=== PATIENT | female | born 1945 | race Caucasian/White ===

== ENCOUNTER 2018-07-01 22:52 | Inpatient (IN) | payer MEDICARE ==
[~2018-07-01] VITALS: Ht 152.4 cm; Wt 89.1 kg
[~2018-07-01 22:52] MED LIST: AUGMENTIN875TAB PO; B-12; BACTROBAN2 % TOP; CALCIUM; CIPROFLOXACN500 MG PO; DIFLUCAN150 MG PO; DOXYCYCL HYC100 MG PO; FLONASE NASAL50 MCG; HYDROCODONE BIT; HYDROCORTISO2.51 EX; LACTAID FAS9000 UNIT PO; LASIX 20 MG TAB20 MG PO; LOSARTAN POT100 MG PO; MELATONIN3 MG PO; METFORMIN500 M2 PO; METOPROLOL SUCC50 MG OR; MUCINEX600 MG PO; NORCO1 TA1 PO; SPIRONOLACT100 MG PO; ULTRAM50 M1 PO; [UNRECOGNIZED DRUG - OTHER] VA
[2018-07-01 23:35] LABS: HEMATOCRIT 35.3 % (37.0-47.0); HEMOGLOBIN 11.3 g/dl (12.0-16.0); IMMATURE GRANULOCYTES 0.4 % (0.0-5.0); MEAN CELL VOLUME 88.7 fL CALC (80.0-100.0); MEAN CORPUSCULAR HGB 28.4 pG CALC (26.0-32.0); NEUT# 4.52 thou/uL (2.00-7.15); RED BLOOD COUNT 3.98 mill/uL (4.20-5.60); RED CELL DISTRI WIDTH 18.4 % (11.5-15.5)
[2018-07-01 23:44] LABS: ALBUMIN 4.1 g/dL (3.2-5.0); ALKALINE PHOSPHATASE 81 u/l (38-126); ANION GAP 17 (6-22 (CALC)); BILIRUBIN, TOTAL 0.2 mg/dL (0.0-1.4); BUN 22 mg/dL (8-23); BUN/CREATININE RATIO 29 (12-20 (CALC)); CARBON DIOXIDE 24 mmol/l (22-30); CHLORIDE 107 mmol/l (95-108); CREATININE 0.8 mg/dL (0.5-1.0); GFR > 60 ML/MIN (>=60 (CALC)); GFR FOR AFR.AMER. > 60 ML/MIN (>=60 (CALC)); POTASSIUM 4.1 mmol/l (3.5-5.1); SGOT/AST 30 u/l (9-36); SGPT/ALT 35 u/l (11-66); SODIUM 144 mmol/l (137-146); TOTAL PROTEIN 7.4 g/dL (6.3-8.2)
[2018-07-01 23:56] LABS: MYOGLOBIN 120 ng/mL (0 - 62)
[2018-07-02] VITALS (17 sets, daily range): BP systolic 96–155; BP diastolic 56–106
[2018-07-02 00:39] LABS: URINE BILIRUBIN - DIPSTICK NEGATIVE (NEGATIVE); URINE BLOOD DIPSTICK NEGATIVE (NEGATIVE); URINE COLOR YELLOW; URINE GLUCOSE - DIPSTICK NEGATIVE (NEGATIVE); URINE KETONE NEGATIVE (NEGATIVE); URINE LEUK ESTERASE NEGATIVE (NEGATIVE); URINE NITRITE - DIPSTICK NEGATIVE (Negative); URINE PROTEIN - DIPSTICK NEGATIVE (NEG-TRACE); URINE SPECIFIC GRAVITY 1.015; URINE UROBILINOGEN - DIPSTICK 0.2 E.U./dL (0.2)
[2018-07-02 00:47] LABS: URINE CLARITY CLEAR
[2018-07-02 02:44] LABS: INTERNATIONAL NORMALIZED RATIO 0.9 RATIO (0.7-1.3); PROTHROMBIN TIME 10.4 SECONDS (9.0-12.5)
[2018-07-03] VITALS: BP 113/83
[2018-07-03 04:55] LABS: HEMOGLOBIN 11.9 g/dl (12.0-16.0); IMMATURE GRANULOCYTES 0.4 % (0.0-5.0); MEAN CELL VOLUME 87.5 fL CALC (80.0-100.0); MEAN CORPUSCULAR HGB 28.1 pG CALC (26.0-32.0); MEAN CORPUSCULAR HGB CONC 32.2 g/L CALC (32.0-36.0); NEUT# 7.44 thou/uL (2.00-7.15); RED BLOOD COUNT 4.23 mill/uL (4.20-5.60); RED CELL DISTRI WIDTH 18.1 % (11.5-15.5)
[2018-07-03 05:08] LABS: ALBUMIN 3.7 g/dL (3.2-5.0); ALKALINE PHOSPHATASE 86 u/l (38-126); ANION GAP 13 (6-22 (CALC)); BILIRUBIN, TOTAL 0.5 mg/dL (0.0-1.4); BUN 14 mg/dL (8-23); BUN/CREATININE RATIO 26 (12-20 (CALC)); CARBON DIOXIDE 29 mmol/l (22-30); CHLORIDE 104 mmol/l (95-108); CREATININE 0.6 mg/dL (0.5-1.0); GFR > 60 ML/MIN (>=60 (CALC)); GFR FOR AFR.AMER. > 60 ML/MIN (>=60 (CALC)); MAGNESIUM 1.4 mg/dL (1.6-2.3); POTASSIUM 4.3 mmol/l (3.5-5.1); SGOT/AST 28 u/l (9-36); SGPT/ALT 34 u/l (11-66); SODIUM 142 mmol/l (137-146); TOTAL PROTEIN 6.6 g/dL (6.3-8.2)
[2018-07-03 06:00] VITALS: BP 111/49
[2018-07-03 07:00] VITALS: BP 140/93
[2018-07-03 10:00] VITALS: BP 111/66
[2018-07-03 16:00] VITALS: BP 115/70
[2018-07-03 20:00] VITALS: BP 87/56
[2018-07-04] VITALS: BP 107/56
[2018-07-04 04:00] VITALS: BP 110/66
[2018-07-04 06:01] LABS: HEMATOCRIT 38.4 % (37.0-47.0); HEMOGLOBIN 12.3 g/dl (12.0-16.0); IMMATURE GRANULOCYTES 0.5 % (0.0-5.0); MEAN CELL VOLUME 88.9 fL CALC (80.0-100.0); MEAN CORPUSCULAR HGB 28.5 pG CALC (26.0-32.0); NEUT# 3.69 thou/uL (2.00-7.15); RED BLOOD COUNT 4.32 mill/uL (4.20-5.60)
[2018-07-04 06:19] LABS: ALBUMIN 3.4 g/dL (3.2-5.0); ALKALINE PHOSPHATASE 76 u/l (38-126); ANION GAP 15 (6-22 (CALC)); BILIRUBIN, TOTAL 0.5 mg/dL (0.0-1.4); BUN 18 mg/dL (8-23); BUN/CREATININE RATIO 33 (12-20 (CALC)); CARBON DIOXIDE 25 mmol/l (22-30); CHLORIDE 107 mmol/l (95-108); CREATININE 0.5 mg/dL (0.5-1.0); GFR > 60 ML/MIN (>=60 (CALC)); GFR FOR AFR.AMER. > 60 ML/MIN (>=60 (CALC)); MAGNESIUM 1.5 mg/dL (1.6-2.3); POTASSIUM 4.6 mmol/l (3.5-5.1); SGOT/AST 36 u/l (9-36); SGPT/ALT 29 u/l (11-66); SODIUM 141 mmol/l (137-146); TOTAL PROTEIN 6.3 g/dL (6.3-8.2)
[2018-07-04 07:30] VITALS: BP 110/73
[2018-07-04] MEDS ORDERED: XARELTO10 MG PO (12:32)
[2018-07-04] MEDS ORDERED: METO50TA52 PO (12:32)
[2018-07-04] MEDS ORDERED: PANTOPRAZOLE SO40 M1 PO (12:33)
[2018-07-04 13:00] VITALS: BP 100/57
== END 2018-07-04 15:40 | DRG 309 ==
LOC: ED 22:52 → ED-I 23:18 → ED 07-02 01:00 → MS2 07-02 01:01 → ICU 07-02 01:01
PROVIDERS: Emergency Medicine; ADMIT Internal Medicine Nephrology; ATTEND Internal Medicine Nephrology
DX: I48.91 Unspecified atrial fibrillation (principal); G45.9 Transient cerebral ischemic attack, unspecified; I10 Essential (primary) hypertension; E11.40 Type 2 diabetes mellitus with diabetic neuropathy, unspecified; E78.5 Hyperlipidemia, unspecified; J44.9 Chronic obstructive pulmonary disease, unspecified; R60.0 Localized edema; D63.8 Anemia in other chronic diseases classified elsewhere; E66.9 Obesity, unspecified; S61.512A Laceration without foreign body of left wrist, initial encounter; W18.30XA Fall on same level, unspecified, initial encounter; Y92.000 Kitchen of unspecified non-institutional (private) residence as the place of occurrence of the external cause; Z68.38 Body mass index [BMI] 38.0-38.9, adult; Z79.84 Long term (current) use of oral hypoglycemic drugs; Z87.11 Personal history of peptic ulcer disease

== ENCOUNTER 2018-08-22 15:11 | Emergency (ER) | payer MEDICARE ==
[~2018-08-22] VITALS: Ht 147.3 cm; Wt 90.0 kg
[~2018-08-22 15:11] MED LIST changes: +ACETAMINOPHEN325 MG PO; +ALEVE220 M1 PO; +ANTI-DIARRHE2 M1 PO; +AZELASTINE0.1 %; +B-12500 MC1 PO; +CORRECTOL100 MG PO; +DUONEB IN; +GAS RELIEF EXT125 MG PO; +LACTASE PO; +LOVASTATIN10 M1 PO; +LOVASTATIN10 MG PO; +MELATONIN5 M3 PO; +METO50TA52 PO; -METOPROLOL SUCC50 MG OR; +METOPROLOL SUCC50 MG PO; +MULTIVITAMIN PO; +PANTOPRAZOLE SO40 M1 PO; +PROBIOTI3 PO; +PROTONIX40 M2 PO; +RANITIDINE150 M1 PO; +SINGULAIR10 MG PO; +TYLENOL 500MG TAB PO; +VENTOLIN HFA IN; +VITAMIN D31000 UNI1 PO; +VITAMIN E PO; +XARELTO10 MG PO; +magnesium carbonate PO
[2018-08-22 16:28] LABS: IMMATURE GRANULOCYTES 0.8 % (0.0-5.0); MEAN CELL VOLUME 91.3 fL CALC (80.0-100.0); MEAN CORPUSCULAR HGB 28.5 pG CALC (26.0-32.0); MEAN CORPUSCULAR HGB CONC 31.2 g/L CALC (32.0-36.0); NEUT# 6.43 thou/uL (2.00-7.15); RED BLOOD COUNT 2.42 mill/uL (4.20-5.60); RED CELL DISTRI WIDTH 18.5 % (11.5-15.5)
[2018-08-22 16:30] LABS: HEMOGLOBIN 6.9 g/dl (12.0-16.0)
[2018-08-22 16:31] LABS: HEMATOCRIT 22.1 % (37.0-47.0)
[2018-08-22 16:46] LABS: ALBUMIN 3.6 g/dL (3.2-5.0); ALKALINE PHOSPHATASE 69 u/l (38-126); ANION GAP 14 (6-22 (CALC)); BILIRUBIN, TOTAL 0.3 mg/dL (0.0-1.4); BUN 22 mg/dL (8-23); BUN/CREATININE RATIO 32 (12-20 (CALC)); CARBON DIOXIDE 24 mmol/l (22-30); CHLORIDE 102 mmol/l (95-108); CREATININE 0.7 mg/dL (0.5-1.0); GFR > 60 ML/MIN (>=60 (CALC)); GFR FOR AFR.AMER. > 60 ML/MIN (>=60 (CALC)); POTASSIUM 4.7 mmol/l (3.5-5.1); SGOT/AST 24 u/l (9-36); SODIUM 135 mmol/l (137-146); TOTAL PROTEIN 6.3 g/dL (6.3-8.2)
[2018-08-22 18:57] VITALS: BP 142/70
[2018-08-26] MEDS ORDERED: XARELTO20 MG PO (12:06)
[2018-08-26] MEDS ORDERED: GNP MUCUS RELI400 MG PO (12:09)
== END 2018-08-22 18:57 | disposition short-term general hospital (02) ==
LOC: ED 15:11
PROVIDERS: Emergency Medicine
DX: K92.2 Gastrointestinal hemorrhage, unspecified (principal); D50.0 Iron deficiency anemia secondary to blood loss (chronic); I10 Essential (primary) hypertension; E11.9 Type 2 diabetes mellitus without complications; I48.91 Unspecified atrial fibrillation; K27.9 Peptic ulcer, site unspecified, unspecified as acute or chronic, without hemorrhage or perforation; T48.6X6A Underdosing of antiasthmatics, initial encounter; R06.02 Shortness of breath
CPT/HCPCS: S0164

== ENCOUNTER 2018-09-16 13:44 | Observation (INO) | payer MEDICARE ==
[~2018-09-16] VITALS: Ht 147.3 cm; Wt 87.0 kg
[~2018-09-16 13:44] MED LIST changes: +GNP MUCUS RELI400 MG PO; +XARELTO20 MG PO
[2018-09-16] MEDS ORDERED: METOPROL TAR25 MG PO (14:01)
[2018-09-16] MEDS ORDERED: LASIX 20 MG TAB20 MG PO (14:01)
[2018-09-16 14:08] LABS: IMMATURE GRANULOCYTES 0.3 % (0.0-5.0); MEAN CELL VOLUME 91.9 fL CALC (80.0-100.0); MEAN CORPUSCULAR HGB 28.3 pG CALC (26.0-32.0); MEAN CORPUSCULAR HGB CONC 30.9 g/L CALC (32.0-36.0); NEUT# 4.24 thou/uL (2.00-7.15); RED BLOOD COUNT 3.81 mill/uL (4.20-5.60); RED CELL DISTRI WIDTH 18.1 % (11.5-15.5)
[2018-09-16 14:09] LABS: HEMOGLOBIN 10.8 g/dl (12.0-16.0)
[2018-09-16 14:20] LABS: ANION GAP 14 (6-22 (CALC)); BUN 33 mg/dL (8-23); BUN/CREATININE RATIO 41 (12-20 (CALC)); CARBON DIOXIDE 29 mmol/l (22-30); CHLORIDE 99 mmol/l (95-108); CREATININE 0.8 mg/dL (0.5-1.0); GFR > 60 ML/MIN (>=60 (CALC)); GFR FOR AFR.AMER. > 60 ML/MIN (>=60 (CALC)); POTASSIUM 4.7 mmol/l (3.5-5.1); SODIUM 138 mmol/l (137-146)
[2018-09-16 17:43] VITALS: BP 117/65
[2018-09-16 20:07] VITALS: BP 129/79
[2018-09-17 00:20] VITALS: BP 126/81
[2018-09-17 04:56] VITALS: BP 121/80
[2018-09-17 06:12] LABS: HEMATOCRIT 35.7 % (37.0-47.0); IMMATURE GRANULOCYTES 0.3 % (0.0-5.0); MEAN CELL VOLUME 92.5 fL CALC (80.0-100.0); MEAN CORPUSCULAR HGB 28.5 pG CALC (26.0-32.0); MEAN CORPUSCULAR HGB CONC 30.8 g/L CALC (32.0-36.0); NEUT# 7.93 thou/uL (2.00-7.15); RED BLOOD COUNT 3.86 mill/uL (4.20-5.60); RED CELL DISTRI WIDTH 18.3 % (11.5-15.5)
[2018-09-17 06:34] LABS: ALBUMIN 3.9 g/dL (3.2-5.0); ALKALINE PHOSPHATASE 84 u/l (38-126); ANION GAP 15 (6-22 (CALC)); BILIRUBIN, TOTAL 0.4 mg/dL (0.0-1.4); BUN 31 mg/dL (8-23); BUN/CREATININE RATIO 45 (12-20 (CALC)); CARBON DIOXIDE 28 mmol/l (22-30); CHLORIDE 100 mmol/l (95-108); CREATININE 0.7 mg/dL (0.5-1.0); GFR > 60 ML/MIN (>=60 (CALC)); GFR FOR AFR.AMER. > 60 ML/MIN (>=60 (CALC)); POTASSIUM 4.2 mmol/l (3.5-5.1); SGOT/AST 25 u/l (9-36); SODIUM 139 mmol/l (137-146); TOTAL PROTEIN 6.8 g/dL (6.3-8.2)
[2018-09-17 06:44] LABS: MAGNESIUM 1.9 mg/dL (1.6-2.3)
[2018-09-17 08:00] VITALS: BP 99/58
[2018-09-17 11:55] VITALS: BP 100/73
[2018-09-17 16:18] VITALS: BP 112/81
[2018-09-17 20:00] VITALS: BP 127/85
[2018-09-18 04:35] VITALS: BP 102/41
[2018-09-18 07:05] LABS: HEMATOCRIT 33.3 % (37.0-47.0); HEMOGLOBIN 10.3 g/dl (12.0-16.0); IMMATURE GRANULOCYTES 0.4 % (0.0-5.0); MEAN CELL VOLUME 91.7 fL CALC (80.0-100.0); MEAN CORPUSCULAR HGB 28.4 pG CALC (26.0-32.0); MEAN CORPUSCULAR HGB CONC 30.9 g/L CALC (32.0-36.0); NEUT# 4.95 thou/uL (2.00-7.15); RED BLOOD COUNT 3.63 mill/uL (4.20-5.60)
[2018-09-18 07:19] LABS: ALBUMIN 3.5 g/dL (3.2-5.0); ALKALINE PHOSPHATASE 79 u/l (38-126); ANION GAP 12 (6-22 (CALC)); BILIRUBIN, TOTAL 0.4 mg/dL (0.0-1.4); BUN 21 mg/dL (8-23); BUN/CREATININE RATIO 35 (12-20 (CALC)); CARBON DIOXIDE 30 mmol/l (22-30); CHLORIDE 101 mmol/l (95-108); CREATININE 0.6 mg/dL (0.5-1.0); GFR > 60 ML/MIN (>=60 (CALC)); GFR FOR AFR.AMER. > 60 ML/MIN (>=60 (CALC)); MAGNESIUM 1.9 mg/dL (1.6-2.3); POTASSIUM 4.5 mmol/l (3.5-5.1); SGOT/AST 24 u/l (9-36); SODIUM 139 mmol/l (137-146); TOTAL PROTEIN 6.3 g/dL (6.3-8.2)
[2018-09-18 08:44] VITALS: BP 105/68; BP 99/68
[2018-09-18 10:25] LABS: C. DIFFICILE TOXIN A&B NEGATIVE (NEGATIVE)
[2018-09-18 12:08] VITALS: BP 126/72
[2018-09-18 15:57] VITALS: BP 119/54
[2018-09-18 19:50] VITALS: BP 98/56
[2018-09-19 00:30] VITALS: BP 125/74
[2018-09-19 05:32] VITALS: BP 110/69
[2018-09-19 06:01] LABS: HEMATOCRIT 36.1 % (37.0-47.0); HEMOGLOBIN 11.2 g/dl (12.0-16.0); IMMATURE GRANULOCYTES 0.4 % (0.0-5.0); MEAN CELL VOLUME 91.9 fL CALC (80.0-100.0); MEAN CORPUSCULAR HGB 28.5 pG CALC (26.0-32.0); NEUT# 5.17 thou/uL (2.00-7.15); RED BLOOD COUNT 3.93 mill/uL (4.20-5.60); RED CELL DISTRI WIDTH 17.4 % (11.5-15.5)
[2018-09-19 06:07] LABS: ALBUMIN 3.5 g/dL (3.2-5.0); ALKALINE PHOSPHATASE 82 u/l (38-126); ANION GAP 13 (6-22 (CALC)); BILIRUBIN, TOTAL 0.4 mg/dL (0.0-1.4); BUN 25 mg/dL (8-23); BUN/CREATININE RATIO 36 (12-20 (CALC)); CARBON DIOXIDE 29 mmol/l (22-30); CHLORIDE 101 mmol/l (95-108); CREATININE 0.7 mg/dL (0.5-1.0); GFR > 60 ML/MIN (>=60 (CALC)); GFR FOR AFR.AMER. > 60 ML/MIN (>=60 (CALC)); POTASSIUM 4.5 mmol/l (3.5-5.1); SGOT/AST 22 u/l (9-36); SODIUM 138 mmol/l (137-146); TOTAL PROTEIN 6.4 g/dL (6.3-8.2)
[2018-09-19 08:30] VITALS: BP 114/72
[2018-09-19 11:20] VITALS: BP 119/84
[2018-09-19] MEDS ORDERED: CIPROFLOXACN500 MG PO (14:52)
[2018-09-19] MEDS ORDERED: ROBITUSSIN AC10 ML PO (15:45)
== END 2018-09-19 17:23 | disposition home or self-care (01) ==
LOC: ED 13:44 → ED-I 15:19 → ED 15:30 → MS2 15:31
PROVIDERS: Family Medicine; ADMIT Internal Medicine Nephrology; ATTEND Internal Medicine Nephrology
DX: I48.91 Unspecified atrial fibrillation (principal); I10 Essential (primary) hypertension; R00.1 Bradycardia, unspecified; E11.9 Type 2 diabetes mellitus without complications; K27.9 Peptic ulcer, site unspecified, unspecified as acute or chronic, without hemorrhage or perforation; J44.9 Chronic obstructive pulmonary disease, unspecified; E66.9 Obesity, unspecified; Z68.41 Body mass index [BMI] 40.0-44.9, adult; G47.33 Obstructive sleep apnea (adult) (pediatric); E78.5 Hyperlipidemia, unspecified; K21.9 Gastro-esophageal reflux disease without esophagitis; E55.9 Vitamin D deficiency, unspecified; R19.7 Diarrhea, unspecified; R60.0 Localized edema

== ENCOUNTER 2018-10-29 22:24 | Inpatient (IN) | payer MEDICARE ==
[~2018-10-29] VITALS: Ht 274.3 cm; Wt 84.4 kg
[~2018-10-29 22:24] MED LIST changes: +METOPROL TAR25 MG PO; +ROBITUSSIN AC10 ML PO
--- NOTE | 2018-10-29 22:32 | NUR ---
PT ARRIVES TO ROOM # 10 VIA EMS STRETCHER.
--- NOTE | 2018-10-29 22:47 | NUR ---
PT IN NAD. LEFT LEG SHORTENED. LEFT LEG SWOLLEN ALL THE WAY TO THE FOOT. ABRASION TO LEFT HAND.
--- NOTE | 2018-10-29 22:47 | NUR ---
A/O X3. BECKWITH. GRASP EQUAL RESP EASY. SOME COUGH. DIM BS IN LOWER BASES. OTHERWISE CLEAR. ABD SOFT/NON-TENDER. BS+ X 4. PT IS RED/SLIGHTLY ESCORIATED IN BREAST CREASE AND GROIN/LOWER ABD/VIKTOR AREA. STATES SHE IS SUPPOSE TO BE PUTTING CREAM ON IT...BUT DIDN'T TODAY.
--- NOTE | 2018-10-29 22:48 | NUR ---
XRAY AT BEDSIDE
[2018-10-29 22:59] LABS: HEMATOCRIT 36.4 % (37.0-47.0); HEMOGLOBIN 11.3 g/dl (12.0-16.0); IMMATURE GRANULOCYTES 0.5 % (0.0-5.0); MEAN CELL VOLUME 89.7 fL CALC (80.0-100.0); MEAN CORPUSCULAR HGB 27.8 pG CALC (26.0-32.0); NEUT# 3.12 thou/uL (2.00-7.15); RED BLOOD COUNT 4.06 mill/uL (4.20-5.60); RED CELL DISTRI WIDTH 17.3 % (11.5-15.5)
[2018-10-29 23:17] LABS: ALBUMIN 3.4 g/dL (3.2-5.0); ALKALINE PHOSPHATASE 86 u/l (38-126); ANION GAP 13 (6-22 (CALC)); BILIRUBIN, TOTAL 0.3 mg/dL (0.0-1.4); BUN 22 mg/dL (8-23); BUN/CREATININE RATIO 35 (12-20 (CALC)); CARBON DIOXIDE 27 mmol/l (22-30); CHLORIDE 106 mmol/l (95-108); CREATININE 0.6 mg/dL (0.5-1.0); GFR > 60 ML/MIN (>=60 (CALC)); GFR FOR AFR.AMER. > 60 ML/MIN (>=60 (CALC)); POTASSIUM 3.8 mmol/l (3.5-5.1); SGOT/AST 37 u/l (9-36); SODIUM 142 mmol/l (137-146); TOTAL PROTEIN 6.1 g/dL (6.3-8.2)
[2018-10-29 23:29] LABS: MYOGLOBIN 116 ng/mL (0 - 62)
--- NOTE | 2018-10-29 23:43 | NUR ---
ATTEMPTED TO CATH...UNABLE. PT NOW ON BEDPAN
[2018-10-30] VITALS (14 sets, daily range): BP systolic 90–141; BP diastolic 53–86
--- NOTE | 2018-10-30 00:30 | NUR ---
INT RESTARTED AFTER SEVERAL ATTEMPTS. PT STILL UNABLE TO VOID.
--- NOTE | 2018-10-30 00:40 | NUR ---
TO FLOOR VIA STRETCHER. PT ON PORTABLE MONITOR
--- NOTE | 2018-10-30 00:40 | NUR ---
UNABLE TO DO MED REC PT DOES NOT HAVE LIST WITH HER. STATES SHE WILL HAVE HER DAUGHTER BRING IT UP IN THE AM.
--- NOTE | 2018-10-30 02:00 | NUR ---
PATIENT ADMITTED FROM ER VIA STRETCHER WITH ER STAFF IN ATTENDANCE. PATIENT IS MAX TRANSFER FROM STRETCHER TO BED. PATIENT IS AWAKE ALERT AND ORIENTEDX3. PATIENT ADMITTED AFTER HAVING FALL AT HOME AND BROUGHT TO THE ER BY EMS. TELE MONITOR IN PLACE-A-FIB ON MONITOR. IV SITE TO RIGHT UPPER CHEST INTACT AND IS HEALTHY WITH GOOD BLOOD RETURN. ORIENTED PATIENT TO ROOM AND SURROUNDINGS. INSTRUCTED PATIENT ON USE OF NURSE CALL LIGHT SYSTEM, TV REMOTE. AND PHONE. PATIENT PROVIDED WITH SNACK-TOLERATED WELL. SAFETY PRECAUTIONS REINFORCED. CALL LIGHT IN REACH. WILL CONT TO MONITOR.
[2018-10-30 05:58] LABS: URINE BILIRUBIN - DIPSTICK NEGATIVE (NEGATIVE); URINE BLOOD DIPSTICK LARGE (NEGATIVE); URINE COLOR YELLOW; URINE GLUCOSE - DIPSTICK NEGATIVE (NEGATIVE); URINE KETONE NEGATIVE (NEGATIVE); URINE PROTEIN - DIPSTICK TRACE mg/dL (NEG-TRACE); URINE UROBILINOGEN - DIPSTICK 0.2 E.U./dL (0.2)
--- NOTE | 2018-10-30 06:00 | NUR ---
PATIENT VOIDED ON BEDPAN AND URINE SPEC OBTAINED AND SENT TO LAB. CALL LIGHT IN REACH. WILL CONT TO MONITOR.
[2018-10-30 06:03] LABS: URINE LEUK ESTERASE SMALL (NEGATIVE); URINE NITRITE - DIPSTICK POSITIVE (Negative)
[2018-10-30 06:06] LABS: URINE BACTERIA MODERATE hpf; URINE RBC 0-2 RBC/hpf (0-5); URINE SQUAMOUS EPITHELIAL CELL FEW EPI/hpf (0-FEW)
--- NOTE | 2018-10-30 07:00 | NUR ---
REPORT RECEIVED FROM ANGELA PIERSON;PT RESTING IN SEMI FOWLERS POSITION, NON-PRODUCTIVE COUGH NOTED AND FRESH WATER PROVIDED;INTRODUCED SELF TO PT AND POC DISCUSSED;RESPIRATIONS EVEN AND UNLABORED ON RA;PT DENIES ANY CURRENT PAIN OR NEEDS;TELE MONITORING IN PLACE;PT ENCOURAGED TO CALL FOR ASSISTANCE IF NEEDED;FALL PRECAUTIONS IN PLACE WITH BED IN THE LOWEST POSITION AND CALL LIGHT IN REACH;WILL CONTINUE TO MONITOR
--- NOTE | 2018-10-30 08:20 | NUR ---
PT RESTING IN SEMI FOWERS POSITION;VS OBTAINED AND ASSESSMENT COMPLETED;PT DENIES ANY CURRENT PAIN OR DISCOMFORTS,PAIN SCALE AND REPORTING EDUCATED;RESPIRATIONS EVEN AND UNLABORED ON RA,SHALLOW;NON-PRODUCTIVE COUGH NOTED, HOT TEA PROVIDED PER PT REQUEST;ABDOMEN DISTENDED/SOFT ON PALPATION AND ACTIVE IN ALL 4 QUADRANTS;WEAK PEDAL PULSES WITH TRACE EDEMA NOTED TO BLE;#22G TO CHA FLUSHED AND PATENT,SITE APPEARS HEALTHY;TELE MONITORING IN PLACE;ACCUCHECK WAS 89 THIS MORNING;PT DENIES ANY ADDITIONAL NEEDS AT THIS TIME AND IS ENCOURAGED TO CALL FOR ASSISTANCE IF NEEDED;FALL PRECAUTIONS IN PLACE WITH BED IN THE LOWEST POSITION AND CALL LIGHT IN REACH;WILL CONTINUE TO MONITOR
[2018-10-30 10:56] LABS: ALBUMIN 3.6 g/dL (3.2-5.0); ALKALINE PHOSPHATASE 82 u/l (38-126); ANION GAP 15 (6-22 (CALC)); BILIRUBIN, TOTAL 0.3 mg/dL (0.0-1.4); BUN 18 mg/dL (8-23); BUN/CREATININE RATIO 33 (12-20 (CALC)); CARBON DIOXIDE 23 mmol/l (22-30); CHLORIDE 105 mmol/l (95-108); CREATININE 0.6 mg/dL (0.5-1.0); GFR > 60 ML/MIN (>=60 (CALC)); GFR FOR AFR.AMER. > 60 ML/MIN (>=60 (CALC)); MAGNESIUM 1.7 mg/dL (1.6-2.3); POTASSIUM 3.7 mmol/l (3.5-5.1); SGOT/AST 38 u/l (9-36); SODIUM 139 mmol/l (137-146); TOTAL PROTEIN 6.7 g/dL (6.3-8.2)
--- NOTE | 2018-10-30 11:50 | NUR ---
PT OOB RESTING IN RECLINER;PT AMBULATED WITH 2 PERSON ASSIST TO RESTROOM AND VOIDED 600CC OF CLOUDY/YELLOW URINE;PT RE-POSITIONED BACK INTO RECLINER;RESPIRATIONS SHALLOW ON O2 @ 2L VIA NC;PT DENIES ANY CURRENT PAIN OR DISCOMFORTS;TELE MONITORING IN PLACE;ACCUCHECK 120 AT THIS TIME;PT DENIES ANY ADDITIONAL NEEDS AND IS ENCOURAGED TO CALL FOR ASSISTANCE IF NEEDED;FALL PRECAUTIONS IN PLACE WITH CALL LIGHT IN REACH;WILL CONTINUE TO MONITOR
--- NOTE | 2018-10-30 12:00 | NUR ---
AT BEDSIDE DISCUSSING POC.
--- NOTE | 2018-10-30 12:54 | NUR ---
PINEDA CATHETER PLACED AT THIS TIME PER ORDERS BY FERN AND GUILLERMINA BOO;600CC OF CLOUDY/YELLOW URINE OBTAINED INITIALLY.PT TOLERATED WELL.LEG STRAP APPLIED.
--- NOTE | 2018-10-30 13:07 | NUR ---
NEB TX STOPPED EARLY DUE TO MAKING HER COUGH TOO MUCH.
--- NOTE | 2018-10-30 13:09 | NUR ---
PT TRANSFERRED TO [facility] VIA WHEELCHAIR ACCOMPANIED BY VOLUNTEER IN STABLE CONDITION.
--- NOTE | 2018-10-30 13:30 | NUR ---
PT TRANSFERRED BACK TO MED/SURG IN STABLE CONDITION VIA WHEELCHAIR ACCOMPANIED BY VOLUNTEER.PT RE-POSITIONED INTO BED.PT AWARE OF PENDING TRANSFER TO ICU AND VERBALIZES UNDERSTANDING;WILL CONTINUE TO MONITOR
--- NOTE | 2018-10-30 14:00 | NUR ---
REPORT GIVEN TO ANGELA ROSS;PT TO BE TRANSFERRED TO ICU BED 6.
--- NOTE | 2018-10-30 14:13 | NUR ---
PT TRANSFERRED TO ICU BED 6 VIA WHEELCHAIR IN STABLE CONDITION.CARE RELINQUISHED TO ANGELA ROSS.
--- NOTE | 2018-10-30 14:17 | NUR ---
female pt received to ICU bed 6 via wc accompanied by Andreina Bob RN in stable condition; assessment completed at this time; pt alert and oriented; denies pain; no n/v noted at present; resp even and unlabored; lungs clear with crackles noted to left base; skin color wnl; o2 per nc; hr irreg; wk pedal pulses/doppler used; 2+ edema noted to ble; afib on monitor; abd soft with bs present; no bm noted per movie writer; tariq to gravity draining clear/ pale yellow urine; cath strap intact; #22 in robert flushed and patent; no redness or edema noted at site; bumex gtt initiated at 0.5mg/hr=5cc/hr; redness noted to right abd/ groin fold and under right breast; plan of care/ meds explained; pt very talkative; call light within reach; will continue to monitor
--- NOTE | 2018-10-30 16:10 | NUR ---
awake in bed; very talkative; no apparent distress noted; pt offers no complaints; afib on monitor; iv patent; bumex gtt cont at 0.5mg/hr; tariq to gravity; call light within reach; will continue to monitor
--- NOTE | 2018-10-30 17:03 | NUR ---
NEB TX NOT GIVEN DUE TO INCREASED HR
--- NOTE | 2018-10-30 17:53 | NUR ---
awake eating dinner; offers no complaints; iv patent; no redness or edema noted at site; afib on monitor; tariq to gravity; call light within reach
--- NOTE | 2018-10-30 19:29 | NUR ---
PT SITTING UP ON BSC. PT IS ALERT AND ORIENTED X3. PT HAS SLURRED SPEECH WHICH IS PATIENT NORM. SHIFT ASSESSMENT COMPLETED AT THIS TIME. PLAN OF CARE REVIEWED WITH PT. CALL LIGHT IN REACH. WILL CONTINUE TO MONITOR.
--- NOTE | 2018-10-30 21:20 | NUR ---
PT SLEEPING AT THIS TIME. NO S/O DISTRESS NOTED.
--- NOTE | 2018-10-30 21:26 | NUR ---
PT IS IN HIGH FOWLERS POSITION IN BED WATCHING TV W/LIGHTS ON. PINEDA CATHETER IS PATENT W/VERY LIGHT YELLOW CLEAR OUTPUT. PT IS VERY TALKATIVE, DENIES ANY DISTRESS/DISCOMFORT OR NEEDS AT THIS TIME. CALL LIGHT IS IN PT HAND AND SHE HAS BEEN ENCOURAGED TO CALL IF ANY NEEDS ARISE.
--- NOTE | 2018-10-30 23:19 | NUR ---
PT MEDICATED FOR COUGH REQUESTED. NO OTHER S/O DISTRESS. CATHETER PATENT DRAINING CLEAR URINE. IV FLUIDS @0.5ML/HR, SITE APPEARS HEALTHY. CALL LIGHT AT SIDE.
--- NOTE | 2018-10-30 23:50 | NUR ---
V/S ASSESSED, PT TEMP 100.3. PT HAS TWO BLANKETS ON AND ROOM IS TURNED TO HEAT AND IS VERY WARM. ROOM COOLED AND ONE BLANKET REMOVED. PT PROVIDED COOL WASH CLOTH TO HELP HER COOL DOWN, HER FACE APPEARS FLUSHED. WILL RECHECK TEMP AND PT WITH FOLLOW-UP.
[2018-10-31] VITALS (14 sets, daily range): BP systolic 95–133; BP diastolic 57–89
--- NOTE | 2018-10-31 00:30 | NUR ---
PT TEMP 97.7 AND PT APPEARS NON-FLUSHED. WILL CONTINUE TO MONITOR.
--- NOTE | 2018-10-31 01:12 | NUR ---
PT IS SLEEPING AT THIS TIME, IV FLUIDS ARE RUNNING ORDERS PROVIDE. LIGHTS AND TV ARE OFF. NO S/O DISTRESS NOTED. CALL LIGHT AT SIDE.
--- NOTE | 2018-10-31 01:30 | NUR ---
PT APPEARS TO BE SLEEPING AT THIS TIME. NO S/O DISTRESS NOTED. CALL LIGHT AT SIDE.
--- NOTE | 2018-10-31 03:40 | NUR ---
PT V/S ASSESSED, PT ASSISTED GETTING SOCKS BACK ON AND TUCKED BACK INTO BED. NO S/O DISTRESS NOTED, PT WAS SLEEPING SOUNDLY, BUT AWOKE TO MY VOICE. CALL LIGHT LEFT AT PT SIDE.
--- NOTE | 2018-10-31 05:42 | NUR ---
PT APPEARS TO BE SLEEPING AT THIS TIME., NO S/O DISTRESS NOTED. CALL LIGHT NEXT TO HAND.
--- NOTE | 2018-10-31 07:30 | NUR ---
pt awake in bed; offers no complaints; no apparent distress noted; very talkative; assessment completed at this time; pt alert and oriented; complaints of headache; no n/v noted; resp even and unlabored; lungs clear with crackles in bases; skin color wnl; o2 per nc; hr irreg; strong pulses; edema noted to ble; afib on monitor; abd soft with bs present; no bm noted per story writer; tariq to gravity draining clear light yellow urine; cath pino in place; #22 to robert patent with bumex gtt infusing at 0.5mg/hr=0.5cc/hr; no redness or edema noted at site; plan of care/ am meds explained; call light within reach; will continue to monitor
--- NOTE | 2018-10-31 10:15 | NUR ---
awake in bed; offers no complaints; bp reassessed; lopressor administered; tariq to gravity; afib on monitor; call light within reach; will continue to monitor
--- NOTE | 2018-10-31 11:00 | NUR ---
iv noted leaking at insertion site; #22 removed from right shoulder/upper arm with cath tip intact; #22 started lw x2 attempts; flushed and patent; abt resumed; will continue to monitor
--- NOTE | 2018-10-31 12:00 | NUR ---
awake in bed eating lunch; no apparent distress noted; pt offers no complaints; iv intact; afib on monitor; tariq to gravity; call light within reach; will continue to monitor
--- NOTE | 2018-10-31 12:06 | NUR ---
business case analyst Agusto Paula RN notified of pt request for assistance with making out a living will and financial assistance with hospital and home finance;
[2018-10-31 12:24] LABS: HEMATOCRIT 36.5 % (37.0-47.0); HEMOGLOBIN 11.9 g/dl (12.0-16.0); IMMATURE GRANULOCYTES 0.9 % (0.0-5.0); MEAN CELL VOLUME 86.5 fL CALC (80.0-100.0); MEAN CORPUSCULAR HGB 28.2 pG CALC (26.0-32.0); MEAN CORPUSCULAR HGB CONC 32.6 g/L CALC (32.0-36.0); NEUT# 10.3 thou/uL (2.00-7.15); RED BLOOD COUNT 4.22 mill/uL (4.20-5.60)
[2018-10-31 12:40] LABS: BUN 26 mg/dL (8-23); BUN/CREATININE RATIO 38 (12-20 (CALC)); CREATININE 0.7 mg/dL (0.5-1.0); GFR > 60 ML/MIN (>=60 (CALC)); GFR FOR AFR.AMER. > 60 ML/MIN (>=60 (CALC)); MAGNESIUM 1.4 mg/dL (1.6-2.3); SODIUM 138 mmol/l (137-146)
[2018-10-31 12:56] LABS: ANION GAP 17 (6-22 (CALC)); CARBON DIOXIDE 35 mmol/l (22-30); CHLORIDE 90 mmol/l (95-108)
--- NOTE | 2018-10-31 13:49 | NUR ---
WEIGHT OBTAINED VIA STANDING SCALE PER MD REQUEST;
--- NOTE | 2018-10-31 14:30 | NUR ---
awake in chair; offers no complaint; no distress noted; afib on monitor; call light within reach; will continue to monitor
--- NOTE | 2018-10-31 16:20 | NUR ---
awake in bed conversing on cell phone; no apparent distress noted; pt offers no complaints; iv patent; bumeg gtt infusing as per protocol; tariq to gravity; afib on monitor; call light within reach; will continue to monitor
--- NOTE | 2018-10-31 17:58 | NUR ---
awake in chair; offers no complaints; iv patent; bumex gtt cont; tariq to gravity; call light within reach
--- NOTE | 2018-10-31 21:00 | NUR ---
awake. very talkative. denies c/o. monitoring engineer shows a fib. #22 lt wrist bumex gtt infusing @ 5cchr. fluids restrictions cont. tariq cath in place. urine clear yellow. fall precautions cont.
--- NOTE | 2018-10-31 22:00 | NUR ---
watching tv. no c/o voiced. bus driver/monitor shows a fib.
[2018-11-01] VITALS (11 sets, daily range): BP systolic 110–141; BP diastolic 68–95
--- NOTE | 2018-11-01 00:01 | NUR ---
eyes closed. no distress. tariq draining well.
--- NOTE | 2018-11-01 02:00 | NUR ---
eyes closed. no apparent distress. wardrobe supervisor shows a fib.
--- NOTE | 2018-11-01 05:00 | NUR ---
lab here. blood drawn.
[2018-11-01 05:51] LABS: HEMATOCRIT 39.8 % (37.0-47.0); IMMATURE GRANULOCYTES 0.7 % (0.0-5.0); MEAN CELL VOLUME 85.6 fL CALC (80.0-100.0); MEAN CORPUSCULAR HGB CONC 32.7 g/L CALC (32.0-36.0); NEUT# 11.74 thou/uL (2.00-7.15); RED BLOOD COUNT 4.65 mill/uL (4.20-5.60); RED CELL DISTRI WIDTH 16.6 % (11.5-15.5)
[2018-11-01 06:10] LABS: ALBUMIN 4.1 g/dL (3.2-5.0); ALKALINE PHOSPHATASE 95 u/l (38-126); AMYLASE 55 u/l (30-110); BILIRUBIN, TOTAL 0.4 mg/dL (0.0-1.4); BUN 38 mg/dL (8-23); BUN/CREATININE RATIO 44 (12-20 (CALC)); CHLORIDE 84 mmol/l (95-108); CREATININE 0.9 mg/dL (0.5-1.0); GFR > 60 ML/MIN (>=60 (CALC)); GFR FOR AFR.AMER. > 60 ML/MIN (>=60 (CALC)); LIPASE 133 u/l (23-300); MAGNESIUM 1.6 mg/dL (1.6-2.3); POTASSIUM 4.2 mmol/l (3.5-5.1); SGOT/AST 40 u/l (9-36); SODIUM 139 mmol/l (137-146); TOTAL PROTEIN 7.2 g/dL (6.3-8.2)
--- NOTE | 2018-11-01 06:15 | NUR ---
stood to weigh. martina well.
[2018-11-01 06:30] LABS: ANION GAP 18 (6-22 (CALC))
[2018-11-01 06:31] LABS: CARBON DIOXIDE 41 mmol/l (22-30)
--- NOTE | 2018-11-01 07:55 | NUR ---
ASSESSMENT IS COMPLETED: IV SITE IS FREE FROM REDNESS OR EDEMA. HR IS IRREGULAR, PULSES ARE STRONG , BREATH SOUNDS ARE CLEAR AND DIMINISHED. PINEDA INTACT DRAINING YELLOW URINE. CONTINUE TO OBSERVE AND MONITOR.
--- NOTE | 2018-11-01 10:00 | NUR ---
PT IS SITTING IN THE CHAIR AND THEN BACK TO BED. IV SITE IS FREE FROM REDNESS OR EDEMA.
--- NOTE | 2018-11-01 12:15 | NUR ---
PT IS RELAXING IN BED WITH NO DISTRESS NOTED. IV SITE IS FREE FROM REDNESS OR EDEMA. CONTINUE TO OSBERVE AND MONITOR.
--- NOTE | 2018-11-01 14:00 | NUR ---
PT IS RELAXING IN BED WITH NO DISTRESS NOTED. IV SITE IS FREE FROM REDNESS OR EDEMA.
--- NOTE | 2018-11-01 16:00 | NUR ---
PT IS SITTING IN THE CHAIR. NO DISTRESS NOTES. IV SITE IS FREE FROM REDNESS OR EDEMA. CONTINUE TO OBSERVE AND MONITOR.
--- NOTE | 2018-11-01 18:03 | NUR ---
PT IS SITTING UP IN THE CHAIR. WITH NO DISTRESS NOTED. IV SITE IS FREE FROM REDNESS OR EDEMA
--- NOTE | 2018-11-01 19:00 | NUR ---
sitting in bedside chair. denies c/o. residential monitor shows a fib pvcs hr 131. tariq cath in place. urine clear yellow. assisted to bed. martina well. fall precautions cont.
--- NOTE | 2018-11-01 22:00 | NUR ---
eyes closed. no distress. cardiac tech shows a fib pvcs.
[2018-11-02] VITALS (12 sets, daily range): BP systolic 109–151; BP diastolic 66–84
--- NOTE | 2018-11-02 00:01 | NUR ---
resting quietly. no distress. o2 cont.
--- NOTE | 2018-11-02 02:00 | NUR ---
eyes closed. no distress. rn cardiac cath shows a fib pvcs.
--- NOTE | 2018-11-02 04:30 | NUR ---
lab here. blood drawn.
--- NOTE | 2018-11-02 05:00 | NUR ---
stood to weigh. martina well.
[2018-11-02 05:18] LABS: ALKALINE PHOSPHATASE 91 u/l (38-126); ANION GAP 20 (6-22 (CALC)); BILIRUBIN, TOTAL 0.4 mg/dL (0.0-1.4); BUN 60 mg/dL (8-23); BUN/CREATININE RATIO 67 (12-20 (CALC)); CARBON DIOXIDE 37 mmol/l (22-30); CHLORIDE 88 mmol/l (95-108); CREATININE 0.9 mg/dL (0.5-1.0); GFR > 60 ML/MIN (>=60 (CALC)); GFR FOR AFR.AMER. > 60 ML/MIN (>=60 (CALC)); MAGNESIUM 1.9 mg/dL (1.6-2.3); POTASSIUM 4.3 mmol/l (3.5-5.1); SGOT/AST 70 u/l (9-36); SODIUM 140 mmol/l (137-146); TOTAL PROTEIN 7.1 g/dL (6.3-8.2)
[2018-11-02 05:32] LABS: HEMATOCRIT 41.5 % (37.0-47.0); HEMOGLOBIN 13.3 g/dl (12.0-16.0); IMMATURE GRANULOCYTES 0.8 % (0.0-5.0); MEAN CELL VOLUME 87.2 fL CALC (80.0-100.0); MEAN CORPUSCULAR HGB 27.9 pG CALC (26.0-32.0); NEUT# 10.48 thou/uL (2.00-7.15); RED BLOOD COUNT 4.76 mill/uL (4.20-5.60); RED CELL DISTRI WIDTH 16.9 % (11.5-15.5)
--- NOTE | 2018-11-02 07:20 | NUR ---
pt up to chair; no apparent distress noted; pt offers no complaints; assessment completed at this time; pt alert and oriented; very talkative; denies pain/n/v; resp even and unlabored; lungs clear; skin color wnl; o2 per nc at 2L; hr irreg; wk left pedal pulse; no edema noted; afib on monitor; abd soft with bs present; no bm noted per health technical writer; tariq to gravity draining clear yellow urine; cath pino intact; #22 in lw saline locked; no redness or edema noted at site; plan of care/ am meds explained; call light within reach; will continue to monitor
--- NOTE | 2018-11-02 08:02 | NUR ---
up to chair; offers no complaints; iv intact; afib 130s on monitor; will continue to monitor
--- NOTE | 2018-11-02 09:14 | NUR ---
iv noted partially dislodged; now leaking when flushed; catheter removed with tip intact
--- NOTE | 2018-11-02 10:08 | NUR ---
awake in bed; no apparent distress noted; iv patent; abt infusing without complication; no redness or edema noted at site; afib on monitor; tariq to gravity; call light within reach; will continue to monitor
--- NOTE | 2018-11-02 12:05 | NUR ---
awake; up to chair eating lunch; no apparent distress noted; iv intact; afib on monitor; o2 per nc; tariq to gravity; call light within reach; will continue to monitor
--- NOTE | 2018-11-02 13:35 | NUR ---
Dr Ware present at bedside to assess pt and discuss plan of care
--- NOTE | 2018-11-02 14:10 | NUR ---
awake conversing on cell phone; no apparent distress noted; iv intact; afib on monitor; tariq to gravity; call light within reach; will continue to monitor
--- NOTE | 2018-11-02 14:13 | NUR ---
home health Alondra notified per contract writer to cancellation in discharged for today
--- NOTE | 2018-11-02 16:00 | NUR ---
resting in bed with eyes closed; no apparent distress noted; easily arousable; offers no complaints; iv intact; o2 per nc; afib on monitor; call light within reach; will continue to monitor
--- NOTE | 2018-11-02 18:00 | NUR ---
awake in chair eating dinner; offers no complaints; no apparent distress noted; afib on monitor; iv intact; call light within reach
--- NOTE | 2018-11-02 19:00 | NUR ---
sitting in bedside chair. denies distress. o2 cont per nc. bus monitor shows a fib pvcs. #22 rfa saline lock. fluids restriction cont. assisted to bsc then to bed. no void or bm.
--- NOTE | 2018-11-02 22:00 | NUR ---
reading a magazine. denies c/o. strike off machine operator shows a fib pvcs.
--- NOTE | 2018-11-02 23:00 | NUR ---
voided incont after coughing. up to bsc. voided again then back to bed. martina well.
[2018-11-03] VITALS (10 sets, daily range): BP systolic 107–138; BP diastolic 15–99
--- NOTE | 2018-11-03 00:01 | NUR ---
eyes closed. no distress. o2 cont.
--- NOTE | 2018-11-03 01:45 | NUR ---
robitussin 10cc given for cough.
--- NOTE | 2018-11-03 04:00 | NUR ---
eyes closed. no distress. director of cardiac rehabilitation shows a fib pvcs.
--- NOTE | 2018-11-03 05:00 | NUR ---
lab here. blood drawn.
[2018-11-03 05:33] LABS: HEMATOCRIT 41.6 % (37.0-47.0); HEMOGLOBIN 13.1 g/dl (12.0-16.0); IMMATURE GRANULOCYTES 0.9 % (0.0-5.0); MEAN CELL VOLUME 88.3 fL CALC (80.0-100.0); MEAN CORPUSCULAR HGB 27.8 pG CALC (26.0-32.0); MEAN CORPUSCULAR HGB CONC 31.5 g/L CALC (32.0-36.0); NEUT# 10.9 thou/uL (2.00-7.15); RED BLOOD COUNT 4.71 mill/uL (4.20-5.60); RED CELL DISTRI WIDTH 16.6 % (11.5-15.5)
[2018-11-03 05:47] LABS: ANION GAP 19 (6-22 (CALC)); BUN 67 mg/dL (8-23); BUN/CREATININE RATIO 84 (12-20 (CALC)); CARBON DIOXIDE 35 mmol/l (22-30); CHLORIDE 92 mmol/l (95-108); CREATININE 0.8 mg/dL (0.5-1.0); GFR > 60 ML/MIN (>=60 (CALC)); GFR FOR AFR.AMER. > 60 ML/MIN (>=60 (CALC)); SODIUM 142 mmol/l (137-146)
--- NOTE | 2018-11-03 07:00 | NUR ---
pt resting in bed with eyes closed; easily arousable; no apparent distress noted; pt offers no complaints; assessment completed at this time; pt alert and oriented; denies pain; no n/v noted; resp even and unlabored; lungs clear/ diminished bases; skin color wnl; premix concrete batcher cough; o2 per nc at 2L; hr irreg; strong pulses; trace edema noted to ble; afib on monitor; abd soft with bs present; no bm noted per junior technical writer; no urine to inspect at this time; pt admits to stress incont; bsc; #22 to rfa saline locked; no redness or edema noted at site; plan of care/ am meds explained; call light within reach; will continue to monitor
--- NOTE | 2018-11-03 07:58 | NUR ---
awake up to chair for breakfast; offers no complaints; iv intact; afib/pvc on monitor; pt assisted to bsc; voiding with difficulty/straining; 200cc cl yellow urine noted; call light within reach; will continue to monitor
--- NOTE | 2018-11-03 10:09 | NUR ---
awake in bed; no apparent distress noted; pt offers no complaints; iv patent; abt infusing without complication; afib on monitor; call light within reach; will continue to monitor
[2018-11-03] MEDS ORDERED: LOPRESSOR 550 MG/TAB PO (11:53)
[2018-11-03] MEDS ORDERED: CARDIZEM CD120 M1 PO (11:53)
[2018-11-03] MEDS ORDERED: BUMETANIDE1 MG PO (11:54)
--- NOTE | 2018-11-03 11:57 | NUR ---
Dr Ware present at bedside to assess pt and discuss plan of care
--- NOTE | 2018-11-03 12:20 | NUR ---
awake up to bsc; offers no complaints; pt admits to having a bm; iv intact; afib on monitor; ra; call light within reach; will continue to monitor
--- NOTE | 2018-11-03 13:18 | NUR ---
parts data writer called pharm Eugenio; pharm informer per this parts data writer, pt received cardizem this am approx 0830; permission received to administer cardizem CD;
--- NOTE | 2018-11-03 13:45 | NUR ---
this abstract writer called Ayesha Pace (daughter) in regards to discharged schedule for today; daughter inquiring about home health; informed home health has been set up and they will see pt tomorrow; daughter requesting for an appointment with social service and/or case maker; daughter states "I have a lot of concerns about pt going home because she lives alone and has fell multiple times"; daughter then inquires how can a pt be discharged from ICU; abstract writer will speak with MD in regards to planned discharged
--- NOTE | 2018-11-03 13:51 | NUR ---
Dr Ware called per advertising writer; informed per this advertising writer about daughter's concerns; discharge to be held
--- NOTE | 2018-11-03 14:12 | NUR ---
awake in bed conversing on cell phone; no apparent distress noted; pt offers no complaints; iv intact; afib on monitor; call light within reach; will continue to monitor
--- NOTE | 2018-11-03 16:00 | NUR ---
awake in bed; no apparent distress noted; pt offers no complaints; iv intact; afib on monitor; o2 per nc; call light within reach; will continue to monitor
--- NOTE | 2018-11-03 18:21 | NUR ---
awake in chair; offers no complaints; no apparent distress noted; afib monitor; call light within reach
--- NOTE | 2018-11-03 19:00 | NUR ---
awakened easily. remains in bedside chair. athletic monitor shows a fib pvcs. #22 rfa saline lock. fluids restrictions cont. voids per bsc occas stress incont. fall precautions cont.
--- NOTE | 2018-11-03 21:00 | NUR ---
awakens easily. denies distress. hs meds given. voided per bsc then to bed.
[2018-11-04] VITALS (7 sets, daily range): BP systolic 111–144; BP diastolic 67–87
--- NOTE | 2018-11-04 00:01 | NUR ---
hall monitor shows a fib pvcs. hr 92.
--- NOTE | 2018-11-04 02:00 | NUR ---
up to bsc. martina well.
--- NOTE | 2018-11-04 04:00 | NUR ---
awake overnight monitor shows a fib pvcs hr 96.
--- NOTE | 2018-11-04 05:30 | NUR ---
up to bsc, stood to weigh then to bed. martina well.
--- NOTE | 2018-11-04 06:50 | NUR ---
REPORT RECVD FROM ROBBIE RODRIGUEZ AT START OF SHIFT.
--- NOTE | 2018-11-04 07:35 | NUR ---
PT ASSISTED UP TO BSC FOR URINATION & BM. ACCUCHECK & ASSESSMENT COMPLETE. PTS SPEECH IS GARBLED, PT STATES THAT IS NORMAL FOR HER. BREATHING EVEN/UNLABORED, LUNG SOUNDS CLEAR UPPER/MID, DIMINISHED LOWER.
--- NOTE | 2018-11-04 08:00 | NUR ---
PT SITTING UP IN CHAIR, EATING BREAKFAST. REQUESTING MORE FLUIDS. EDUCATED PT ON FLUID RESTRICTIONS. PT FREQUENTLY ON CALLBELL. DONIS CANTU NOTIFIED THAT PT IS STILL IN ICU.
--- NOTE | 2018-11-04 11:34 | NUR ---
P.T. @BEDSIDE FOR EVAL.
--- NOTE | 2018-11-04 12:10 | NUR ---
SPOKE WITH PATIENT ABOUT MEDICATIONS. ANSWERED ALL QUESTIONS AND COUNSELED ON EXPECTED SIDE EFFECTS OF NEW MEDICATIONS ADDED DURING HER STAY. GAVE PATIENT A COPY OF UPDATED MED LIST TO BRING WITH HER TO APPOINTMENTS.
--- NOTE | 2018-11-04 12:25 | NUR ---
CASE MANAGEMENT WORKING ON PLACING PT IN A REHAB.
--- NOTE | 2018-11-04 14:53 | NUR ---
PT SITTING ON SIDE OF BED, GIVING HERSELF A BATH. LINENS & GOWN CHANGED.
--- NOTE | 2018-11-04 16:32 | NUR ---
CALLED FOR BED ASSINGMENT TO TRANSFER MS OVERFLOW PT TO [facility]. PT WILL GO TO NORMAN Lock RN WCB FOR REPORT.
--- NOTE | 2018-11-04 17:12 | NUR ---
REPORT GIVEN TO NORMAN FOR TRANSFER. PT TRANSPORTED BY WITH ALL HER BELONGINGS.
--- NOTE | 2018-11-04 17:55 | NUR ---
PT ARRIVED ON FLOOR VIA W/C AMBULATE WITH UNSTEADY GAIT TO DIGITAL SCALE; WT AND VITALS OBTAINED; RESP EVEN AND UNLABORED ON R/A; TELE ATTACHED TO PT; CALL GOSS AND SAFETY PRECAUTION REINFORCE.
--- NOTE | 2018-11-04 20:05 | NUR ---
PT. SITTING UP IN BED WITH NO DISTRESS NOTED; DENIES NEEDS/PAIN; ASSESSMENT COMPLETED; IV SITE PATENT AND SL TO LEFT WRIST; UPDATED ON POC; ENCOURAGED TO CALL FOR ANY NEEDS; CALL LIGHT IS IN REACH; WILL CONTINUE TO MONITOR.
--- NOTE | 2018-11-04 21:20 | NUR ---
PT. SITTING UP IN BED EATING A SNACK; NO DISTRESS NOTED;SCHED MEDS GIVEN; DENIES NEEDS; CALL LIGHT IS IN REACH; RE-EDUCATED HEBREW TEACHER LIGHT USE; ENCOURAGED TO CALL FOR ANY NEEDS; CALL LIGHT IS IN REACH.
[2018-11-05] VITALS (7 sets, daily range): BP systolic 126–149; BP diastolic 72–89
--- NOTE | 2018-11-05 | NUR ---
PT. RESTING IN BED WITH NO DISTRESS NOTED; DENIES NEEDS; CALL LIGHT IS IN REACH;
--- NOTE | 2018-11-05 03:43 | NUR ---
PT. RESTING IN BED WITH EYES CLOSED; NO DISTRESS NOTED; RESP EVEN AND UNLABORED; CALL LIGHT IS IN REACH; WILL CONTINUE TO MONITOR.
--- NOTE | 2018-11-05 05:41 | NUR ---
PT. RESTING IN BED WITH EYES CLOSED; NO DISTRESS NOTED; RESP EVEN AND UNLABORED; CALL LIGHT IS IN REACH.
[2018-11-05 05:57] LABS: HEMATOCRIT 41.3 % (37.0-47.0); HEMOGLOBIN 13.1 g/dl (12.0-16.0); IMMATURE GRANULOCYTES 0.8 % (0.0-5.0); MEAN CELL VOLUME 87.9 fL CALC (80.0-100.0); MEAN CORPUSCULAR HGB 27.9 pG CALC (26.0-32.0); MEAN CORPUSCULAR HGB CONC 31.7 g/L CALC (32.0-36.0); NEUT# 11.8 thou/uL (2.00-7.15); RED BLOOD COUNT 4.7 mill/uL (4.20-5.60); RED CELL DISTRI WIDTH 16.3 % (11.5-15.5)
[2018-11-05 06:30] LABS: ALBUMIN 3.4 g/dL (3.2-5.0); ALKALINE PHOSPHATASE 88 u/l (38-126); ANION GAP 19 (6-22 (CALC)); BILIRUBIN, TOTAL 0.4 mg/dL (0.0-1.4); BUN 72 mg/dL (8-23); BUN/CREATININE RATIO 90 (12-20 (CALC)); CARBON DIOXIDE 31 mmol/l (22-30); CHLORIDE 90 mmol/l (95-108); CREATININE 0.8 mg/dL (0.5-1.0); GFR > 60 ML/MIN (>=60 (CALC)); GFR FOR AFR.AMER. > 60 ML/MIN (>=60 (CALC)); POTASSIUM 4.5 mmol/l (3.5-5.1); SGOT/AST 71 u/l (9-36); SODIUM 135 mmol/l (137-146); TOTAL PROTEIN 6.1 g/dL (6.3-8.2)
[2018-11-05 06:31] LABS: MAGNESIUM 2.4 mg/dL (1.6-2.3)
--- NOTE | 2018-11-05 07:05 | NUR ---
PT REPORT RECIEVED FROM ANGELA MASTERSON. PT SITTING IN RECLINER. NO S/S OF DISTRESS. CALL LIGHT IN REACH
--- NOTE | 2018-11-05 07:42 | NUR ---
PT A/O X3. SPEECH IS SLIGHTLY GARBLED. RESP EVEN AND UNLABORED. LUNG SOUNDS CLEAR. TELE IN PLACE. BOWEL SOUNDS ACTIVE X4. STRONG RADIAL AND PEDAL PULSES. #22 LW SL. FLUSHED AND PATENT, SITE HEALTHY. PT HS SLIGHT REDNESS UNDERNEATH RT BREAST, RT ABDOMINAL FOLD, AND BOTH GROINS. TRACE OF EDEMA NOTED TO LLE. ENCOURAGED ELEVATION WHEN OOB. SKIN INTACT. PT DENIES ANY PAIN OR NEEDS. POC DISCUSSED. SAFETY PRECAUTIONS IN PLACE. CALL LIGHT IN REACH. WILL CONTINUE TO MONITOR.
--- NOTE | 2018-11-05 09:11 | NUR ---
Pt. found resting this AM in recliner, she does not voice any concerns and is in agreement to participate in gait training and therapeutic exercises, gait belt applied prior to doing so. Sit to stand done with CGA x1 and verbal cues for UE push off from arm rests. Pt. ambulated 2 x 30 feet using 4WW with CGA x 1 and with verbal cues for completing turns, one sitting rest period given. In sitting the pt. performed seated marching, seated alternating knee extensions and AROM shoulder flexion to shoulder height 2 x 10 repetitions each exercise. Visual demonstartions and continual verbal encouragement required during exercise. Pt. left resting comfortably in recliner with LE's elevated, call light reviewed and left within reach. Bedside table left within reach, pt. left without questions or concerns.
--- NOTE | 2018-11-05 12:11 | NUR ---
PT SIITING IN RECLINER EATING AND WATCHING TELEVISION. NO C/O PAIN OR NEEDS. CALL LIGHT IN REACH. WILL CONTINUE TO MONITOR.
--- NOTE | 2018-11-05 16:27 | NUR ---
PT SITTING IN RECLINER, NO C/O OF PAIN OR NEEDS. CALL LIGHT IN REACH. WILL CONTINUE TO MONITOR.
--- NOTE | 2018-11-05 20:37 | NUR ---
PT. SITTING UP IN RECLINER WITH NO DISTRESS NOTED; DENIES NEEDS/PAIN. SCHED MEDS GIVEN; ASSESSMENT COMPLETED; IV SITE PATENT AND SL; FLUSHED AT THIS TIME; PO FLUIDS OFFERED; MOM GIVEN FOR CONSTIPATION; PT. INSTRUCTED TO CALL FOR ANY NEEDS; VERBALIZES UNDERSTANDING; CALL LIGHT IS IN REACH. WILL CONTINUE TO MONITOR.
--- NOTE | 2018-11-05 23:16 | NUR ---
PT. SITTING UP IN BED EATING GRAPES; NO DISTRESS NOTED; DENIES NEEDS/PAIN; ENCOURAGED TO CALL FOR ANY NEEDS; CALL LIGHT IS IN REACH.
--- NOTE | 2018-11-06 01:25 | NUR ---
PT. RESTING IN BED WITH EYES CLOSED; NO DISTRESS NOTED; RESP EVEN AND UNLABORED; CALL LIGHT IS IN REACH.
[2018-11-06 04:14] VITALS: BP 148/76
--- NOTE | 2018-11-06 05:35 | NUR ---
PT. RESTING IN BED WITH EYES CLOSED; RESP EVEN AND UNLABORED; CALL LIGHT IS IN REACH; WILL CONTINUE TO MONITOR.
--- NOTE | 2018-11-06 07:05 | NUR ---
REPORT RECEIVED FROM ZELALEM. PT IS SLEEPING IN BED WITH NO S/S OF DISTRESS NOTED. CALL LIGHT IN REACH.
[2018-11-06 07:33] VITALS: BP 148/90
--- NOTE | 2018-11-06 08:00 | NUR ---
PT IS SITTING IN THE RECLINER. ASESSMENT DONE. TELE IN PLACE. PT IS A&O X3. PT DENIES PAIN AT THIS TIME. PT DENIES NEEDS AT THIS TIME. SAFETY PRECAUTIONS REINFORCED AND CALL LIGHT IN REACH.
[2018-11-06 11:07] VITALS: BP 134/77
--- NOTE | 2018-11-06 11:50 | NUR ---
PT IS SITTING IN THE RECLINER. DR. GILLIS IN ROOM TO ASESS PT AND DISCUSS POC. PT DENIES NEEDS AT THIS TIME. CALL LIGHT IN REACH.
--- NOTE | 2018-11-06 12:29 | NUR ---
PT WAS SEEN RESTING IN THE RECLINER. AGREED TO PARTICIPATE WITH PHYSICAL THERAPY. SIT TO STAND WITH MODIFIED INDEPENDENCE UTILIZING B UE TO PUSH SELF UP TO STAND. IMMEDIATE STANDING BALANCE WAS GOOD. PT THEN AMBULATED IN THE HALLWAY ~75 FT. X 2 WITH RW AND CGA. SHE THEN RETURNED TO HER ROOM AND SAT BACK DOWN IN THE RECLINER WITH MODIFIED INDEPENDENCE AND VERBAL CUEING FOR FALL PREVENTION. NO ADVERSE RXNS NOTED OR REPORTED AT THE END OF TX.
--- NOTE | 2018-11-06 15:05 | NUR ---
PT RESTING IN BED WITH NO S/S OF DISTRESS NOTED. GIVE PT LACTULOSE PER ORDER AND PRUINE JUICE. PT DENIES ANY OTHER NEEDS AT THIS TIME. CALL LIGHT IN REACH.
[2018-11-06 15:35] VITALS: BP 122/70
--- NOTE | 2018-11-06 18:50 | NUR ---
BEDSIDE REPORT RECEIVED FROM ANGELA PALUMBO. PT SITTING UP IN BEDSIDE CHAIR WATCHING TV; ALERT AND ORIENTED WITH GARBELED SPEECH THAT IS NOT NEW. DENIES PAIN. RESPIRATIONS EVEN AND UNLABORED ON ROOM AIR. PLAN OF CARE REVIEWED. PT ENCOURAGED TO VERBALIZE CONCERNS. STATES UNDERSTANDING. SAFETY MEASRUES IN PLACE. CALL LIGHT WITHIN REACH.
[2018-11-06 19:13] VITALS: BP 127/84
--- NOTE | 2018-11-06 21:30 | NUR ---
PT UP TO BSC FOR MODERATE SOFT BOWEL MOVEMENT; HELD LACTULOSE. SET UP FOR ORAL CARE AND ASSISTED BACK INTO BED. HS SNACK GIVEN.
[2018-11-07 00:10] VITALS: BP 130/79
--- NOTE | 2018-11-07 00:38 | NUR ---
PT ASLEEP AT THIS TIME WITH NO SIGNS OF DISTRESS. RESPIRATIONS EVEN AND UNLABORED ON ROOM AIR. IV SITE APPEARS HEALTHY AND FLUSHES. PT AMBULATES WITH WALKER AND STAND BY ASSIST. SAFETY MEASURES IN PLACE. CALL LIGHT WTHIN REACH.
[2018-11-07 04:05] VITALS: BP 120/75
--- NOTE | 2018-11-07 04:56 | NUR ---
PT AWAKENS TO VERBALI STIMULI. C/O HEADACHE; COOL CLOTH APPLIED TO FOREHEAD. NO ACUTE CHANGES IN CONDITION THROUGHOUT THE NIGHT.
[2018-11-07 08:02] VITALS: BP 120/53
--- NOTE | 2018-11-07 08:05 | NUR ---
PT IS SITTING IN THE RECLINER. ASESSMENT DONE. TELE IN PLACE. PT IS A&O X3. PT DENIES PAIN AT THIS TIME. RESPS EVEN AND UNLABORED. #24 LH THAT APPEARS HEALTHY. SAFETY PRECAUTIONS REINFORCED AND CALL LIGHT
[2018-11-07 08:15] VITALS: BP 107/68
[2018-11-07 11:30] VITALS: BP 115/66
--- NOTE | 2018-11-07 12:09 | NUR ---
Discharge instructions given. Patient verbalizes understanding of same. Discharged in stable condition via Wheelchair to OTHER with staff. All belongings sent with pt.
--- NOTE | 2018-11-07 12:24 | NUR ---
REPORT GIVEN TO KALANI CHIU.
== END 2018-11-07 12:10 | DRG 292 ==
LOC: ED 22:24 → ED-I 22:34 → ED 22:34 → ED-I 23:30 → ED 10-30 00:06 → MS2 10-30 00:07 → ICU 10-30 14:15 → MS2 11-04 17:57
PROVIDERS: Emergency Medicine; Internal Medicine; ADMIT Internal Medicine Nephrology; ATTEND Internal Medicine Nephrology
PROC: 0T9B70Z Drainage of Bladder with Drainage Device, Via Natural or Artificial Opening (ICD-10-PCS; principal; 2018-10-30)
DX: I11.0 Hypertensive heart disease with heart failure (principal); Z68.41 Body mass index [BMI] 40.0-44.9, adult; J44.1 Chronic obstructive pulmonary disease with (acute) exacerbation; E87.3 Alkalosis; I50.33 Acute on chronic diastolic (congestive) heart failure; I48.2 Chronic atrial fibrillation; E11.9 Type 2 diabetes mellitus without complications; K27.9 Peptic ulcer, site unspecified, unspecified as acute or chronic, without hemorrhage or perforation; E66.9 Obesity, unspecified; G47.33 Obstructive sleep apnea (adult) (pediatric); K21.9 Gastro-esophageal reflux disease without esophagitis; E55.9 Vitamin D deficiency, unspecified; E78.5 Hyperlipidemia, unspecified; T50.2X5A Adverse effect of carbonic-anhydrase inhibitors, benzothiadiazides and other diuretics, initial encounter

== ENCOUNTER 2019-06-05 08:58 | Day surgery (SDC) | payer MEDICARE ==
[~2019-06-05] VITALS: Ht 147.3 cm; Wt 86.2 kg
[~2019-06-05 08:58] MED LIST changes: +AMIODARONE200 MG PO; +BUMETANIDE1 MG PO; +CARDIZEM CD120 M1 PO; +CYCLOBENZAPR5 MG PO; +FUROSEMIDE40 MG PO; +LOPRESSOR 550 MG/TAB PO; +NYSTATIN100000 UN1; +PROVENTIL0.083 % IN; +SPIRONOLACTONE50 MG PO; -VENTOLIN HFA IN
[2019-06-05 12:16] VITALS: BP 153/98
== END 2019-06-05 12:20 | disposition home or self-care (01) ==
LOC: ENDO 08:58
PROVIDERS: ATTEND Surgery
PROC: 0DB78ZX Excision of Stomach, Pylorus, Via Natural or Artificial Opening Endoscopic, Diagnostic (ICD-10-PCS; principal; 2019-06-05)
PROC: 0DBK8ZX Excision of Ascending Colon, Via Natural or Artificial Opening Endoscopic, Diagnostic (ICD-10-PCS; 2019-06-05)
PROC: 0DBL8ZX Excision of Transverse Colon, Via Natural or Artificial Opening Endoscopic, Diagnostic (ICD-10-PCS; 2019-06-05)
PROC: 0DBN8ZX Excision of Sigmoid Colon, Via Natural or Artificial Opening Endoscopic, Diagnostic (ICD-10-PCS; 2019-06-05)
PROC: 0DBP8ZX Excision of Rectum, Via Natural or Artificial Opening Endoscopic, Diagnostic (ICD-10-PCS; 2019-06-05)
PROC: 0DBM8ZX Excision of Descending Colon, Via Natural or Artificial Opening Endoscopic, Diagnostic (ICD-10-PCS; 2019-06-05)
DX: K29.51 Unspecified chronic gastritis with bleeding (principal); K57.31 Diverticulosis of large intestine without perforation or abscess with bleeding; E11.9 Type 2 diabetes mellitus without complications; I10 Essential (primary) hypertension; I48.91 Unspecified atrial fibrillation; Z79.84 Long term (current) use of oral hypoglycemic drugs; Z87.11 Personal history of peptic ulcer disease

== ENCOUNTER 2020-06-11 00:49 | Observation (INO) | payer MEDICARE ==
[~2020-06-11] VITALS: Ht 152.4 cm; Wt 74.4 kg
--- NOTE | 2020-06-11 00:49 | NUR ---
PT TO ROOM 6 BY EMS.
--- NOTE | 2020-06-11 01:25 | NUR ---
PATIENT AWAITING RADIOLOGY, NO /O PAIN OR DISCOMFORT, RESPIRATIONS EVEN AND UNLABORED, RESTING WITH EYES CLOSED.
[2020-06-11 01:31] LABS: HEMATOCRIT 40.7 % (37.0-47.0); HEMOGLOBIN 12.9 g/dl (12.0-16.0); IMMATURE GRANULOCYTES 0.3 % (0.0-5.0); MEAN CELL VOLUME 99.3 fL CALC (80.0-100.0); MEAN CORPUSCULAR HGB 31.5 pG CALC (26.0-32.0); MEAN CORPUSCULAR HGB CONC 31.7 g/dL CAL (32.0-36.0); NEUT# 3.96 thou/uL (2.00-7.15); RED BLOOD COUNT 4.1 mill/uL (4.20-5.60); RED CELL DISTRI WIDTH 14.2 % (11.5-15.5)
[2020-06-11 01:36] LABS: ALKALINE PHOSPHATASE 92 u/l (38-126); ANION GAP 14 (6-22 (CALC)); BUN 15 mg/dL (8-23); BUN/CREATININE RATIO 23 (12-20 (CALC)); CARBON DIOXIDE 22 mmol/l (22-30); CHLORIDE 105 mmol/l (95-108); CREATININE 0.7 mg/dL (0.5-1.0); GFR > 60 ML/MIN (>=60 (CALC)); GFR FOR AFR.AMER. > 60 ML/MIN (>=60 (CALC)); POTASSIUM 3.8 mmol/l (3.5-5.1); SGOT/AST 27 u/l (9-36); SODIUM 138 mmol/l (137-146); TOTAL PROTEIN 6.7 g/dL (6.3-8.2)
[2020-06-11 01:37] LABS: BILIRUBIN, TOTAL 0.3 mg/dL (0.0-1.4)
[2020-06-11 01:47] LABS: MYOGLOBIN 90 ng/mL (0 - 62)
--- NOTE | 2020-06-11 02:20 | NUR ---
PATIENT RETURNED FROM RADIOLOGY, AWAITING DIAGNOSTIC RESULTS, NO C/O PAIN, NO S/S OF DISTRESS.
[2020-06-11] MEDS ORDERED: MECLIZINE25 MG PO ×2 (02:54)
--- NOTE | 2020-06-11 03:07 | NUR ---
CALLED DAUGHTER PIEDAD LISTED IN RECORD TO COME DIGITAL COMPUTER SYSTEMS ANALYST PT. [phone], NO ANSWER LEFT MESSAGE.
--- NOTE | 2020-06-11 03:12 | NUR ---
ASSITED PATIENT TO BED ALAN, PATIENT AWARE OF PENDING DISCHARGE BUT STATES TATH SHE DOES NOT HAVE TRANSPORTATION HOME, VOICEMAIL MESSAGE LEFT FOR PATIENTS DAUGHTER REQUESTING ASSITANCE WITH TRANSPORTATION, AWAITING RETURN CALL.
--- NOTE | 2020-06-11 03:22 | NUR ---
PATIENT STATES THAT SHE EXPECTS HER DAUGHTER TO BE ABLE TO PROVIDE TRANSPORTATION HOME AFTER 8AM.
[2020-06-11 04:16] LABS: URINE BILIRUBIN - DIPSTICK NEGATIVE (NEGATIVE); URINE BLOOD DIPSTICK SMALL (NEGATIVE); URINE COLOR YELLOW; URINE GLUCOSE - DIPSTICK NEGATIVE (NEGATIVE); URINE KETONE NEGATIVE (NEGATIVE); URINE NITRITE - DIPSTICK NEGATIVE (Negative); URINE PH 5.5 (4.5-8.0); URINE PROTEIN - DIPSTICK 30 mg/dL (NEG-TRACE); URINE UROBILINOGEN - DIPSTICK 0.2 E.U./dL (0.2)
[2020-06-11 04:19] LABS: URINE LEUK ESTERASE MODERATE (NEGATIVE)
[2020-06-11 04:29] LABS: URINE SQUAMOUS EPITHELIAL CELL FEW EPI/hpf (0-FEW)
[2020-06-11 04:31] LABS: URINE BACTERIA FEW hpf
--- NOTE | 2020-06-11 04:35 | NUR ---
CALLED DAUGHTER AGAIN AND LEFT ANOTHER MESSAGE.
--- NOTE | 2020-06-11 05:13 | NUR ---
WHEN PT CAME IN ASKED PT WHAT MEDICATIONS SHE TOOK, PT COULD NOT TELL ME. PER EMS PT HAD PILLS AND BOTTLES ALL OVER THE TABLE. PT STILL CAN NOT LIST MEDICATIONS.
--- NOTE | 2020-06-11 05:18 | NUR ---
CALLED AGAIN AND SPOKE WITH DAUGHTER WHO STATED SHE CAN'T GET HERE UNTIL 0830 OR 0900.
--- NOTE | 2020-06-11 05:25 | NUR ---
PATIENT UNABLE TO AMBULATE TO THE BATHROOM INDEPENTLY, ASSIST OF 1+. UNSTEADY GATE, GRASPING FOR FURITURE AND RAILS, C/O DIZZYNESS. PATIENT STATES THAT HER DAUGHTER WANTS TO PUT HER IN A [facility] BECAUSE SHE ISNT ABLE TO HELP CARE FOR HER.
--- NOTE | 2020-06-11 06:40 | NUR ---
PATIENT RESTING QUIETLY AT THIS TIME, C/O MD MARIE NOTIFIED, RESPIRATIONS EVEN AND UNLABORED, AWAITING TRANSPORTATION.
--- NOTE | 2020-06-11 06:46 | NUR ---
HAND OFF REPORT GIVEN TO ANGELA LONGORIA
--- NOTE | 2020-06-11 06:50 | NUR ---
PT RESTING IN STRETCHER WITH EYES CLOSED AND AWAKENS TO VERBAL STIMULI. PATIENT REPORTS SOME DIZZINESS AT THIS TIME. PT WAS UPDATED ON PLAN OF CARE AND WAIT TIME CALL GOSS WITHIN REACH. MD NOTIFIED OF CONTINUED DIZZINESS.
--- NOTE | 2020-06-11 07:45 | NUR ---
PT SITTING UPRIGHT IN STRETCHER AND DENIES ANY NEEDS. MEAL TRAY SERVED AND PATIENT AWAITING DAUGHTER TO COME PICK HER UP.
--- NOTE | 2020-06-11 08:35 | NUR ---
PATIENT TO BATHROOM VIA WHEELCHIAR. WHEN GETTING BACK INTO STRETCHER PT REPORTS INCREASED DIZZINESS AND FEELING SHE IS SPINNING. PT LIVES [place] AND IS NOT ABLE TO STAY WITH ANYONE AT THIS TIME. DR SEE NOTIFIED.
[2020-06-11] MEDS ORDERED: FERR SULFATE325 MG PO (08:46)
[2020-06-11] MEDS ORDERED: AMIODARONE HCL200 MG PO (08:49)
[2020-06-11] MEDS ORDERED: METFORMIN HCL500 M1 PO (08:50)
[2020-06-11] MEDS ORDERED: LOPRESSOR25 M1 PO (08:50)
--- NOTE | 2020-06-11 08:53 | NUR ---
CALL PLACED TO DAUGHTER TO INFORM HER ON PLAN FOR ADMISSION.
--- NOTE | 2020-06-11 09:00 | NUR ---
NIH COMPLETED AND IS A 1 AT THIS TIME. PATIENT ALSO NOTED TO HAVE BI DIRECTIONAL NYSTAGMUS. PATIENT SCORED A 1 FOR DECREASE SENSATION TO UPPER EXTREMITIES. PT REPROTS THIS HAS BEEN GOING ON FOR MONTHS.
--- NOTE | 2020-06-11 10:00 | NUR ---
PATIENT RESTING IN STRETCHER IN NAD AND DENIES ANY NEEDS. CALL GOSS WITHIN REACH.
--- NOTE | 2020-06-11 10:15 | NUR ---
MS AWARE THAT PATIENT WILL BE A SURGICAL DAYCARE.
--- NOTE | 2020-06-11 10:15 | NUR ---
PATIENT TO ULTRASOUND AND MRI.
--- NOTE | 2020-06-11 10:45 | NUR ---
SPOKE TO CHARLIE TORRES ABOUT ELEVATED LACTIC ACID. AWAITING NEW ORDERS.
--- NOTE | 2020-06-11 11:48 | NUR ---
PT REPORT CALLED TO ANGELA PARKER. IV INFILTRATED. UNABLE TO ESTABLISH ANOTHER IV. ANOTHER NURSE WILL ATTEMPT.
--- NOTE | 2020-06-11 12:05 | NUR ---
MELODY BRANCH LPN AT BEDSIDE AND ESTABLISHED IV SITE.
--- NOTE | 2020-06-11 12:40 | NUR ---
UPDATE PROVIDED TO ANGELA PARKER.
--- NOTE | 2020-06-11 12:52 | NUR ---
Admission Note Report Given to: ANGELA PARKER Transported by: Wheelchair X Stretcher Transported with: X Nurse Transporter X Patent IV O2 X Electronic Repair Troubleshooter Location: ICU X MS2 PATIENT TO ROOM IN STABLE CONDITION.
--- NOTE | 2020-06-11 12:57 | NUR ---
PT ARRIVED TO UNIT VIA STRETCHER WITH ER STAFF; ALERT AND ORIENTED. DIFFICULTY AMBULATING; 2 PERSON ASSIST TO BED. ASSISTED TO BSC FOR UNSUCCESSFUL ATTEMPT TO VOID; SEVERE REDNESS AND EXCORIATION BETWEEN GLUTEAL FOLDS AND VIKTOR AREA; APPARENT URINARY INCONTINENCE; UNCLEAN UNDERGARMENTS AND SOILED PAD REMOVED; HYGIENE PROVIDED AND CLEAN HOSPITAL SUPPLIES OFFERED. PT HAS GARBLED SPEECH; NO TEETH; REPORTS THAT SHE DOESN'T HAVE ANY SINCE HERS BROKE. PERRLA. LUNGS ARE CLEAR; HR IRREGULAR; ABDOMEN DISTENDED AND SOFT. PT C/O BACK DISCOMFORT WITH AMBULATION; RESPIRATIONS SHALLOW AND UNLABORED ON ROOM AIR. VSS. BLE SWOLLEN; LEFT ANKLE LARGER WITH REDNESS, WARMTH, AND 4+ PITTING EDEMA; RIGHT ANKLE HAS MILD REDNESS WITH 2+ PITTING EDEMA. SKIN TEAR TO LEFT HAND. PT REPORTS THAT SHE LIVES ALONE, AMBULATES WITH A WALKER AND DRIVES UP TO 2 DAYS AGO. PT REPORTS URINARY INCONTINENCE AND OCCASIONAL BOWEL ACCIDENTS; PT REPORTS DIARRHEA. 500 ML FLUID BOLUS INFUSING UPON ARRIVAL; IV SITE TO LFA APPEARS HEALTHY AND FLUSHES. ASSISTED TO SITTING UP ON EDGE OF BED TO EAT DINNER TRAY; EATING INDEPENDENTLY. ORIENTED TO ROOM AND CALL LIGHT SYSTEM. PLAN OF CARE DISCUSSED. PT ENCOURAGED TO VERBALIZE CONCERNS. STATES UNDERSTANDING. SAFETY MEASURES IN PLACE. CALL LIGHT WITHIN REACH.
[2020-06-11 13:21] VITALS: BP 152/96
[2020-06-11 15:00] VITALS: BP 133/94
--- NOTE | 2020-06-11 16:40 | NUR ---
PT FREQUENTLY ASSISTED TO BSC FOR VOIDS.
[2020-06-11 18:26] VITALS: BP 127/83
--- NOTE | 2020-06-11 21:06 | NUR ---
PT MEDICATED ORDERS PROVIDE AND ASSISTED REPOSITIONING FOR COMFORT IN THE BED. PT ASKING FOR SOMETHING FOR HER HEADACHE AND STATES HER BACK IS ACHING ALSO. DISCUSSED MEDICATIONS AND INFORMED PT I CAN BRING HER SOME TYLENOL. SNACK OFFERED/PROVIDED. PT DENIES ANY OTHER NEEDS AT THIS TIME. PT LOC, BUT APPEARS SOMEWHAT REPETATIVE AND HARD OF HEARING. POSSIBLE FORGETFULNESS.
--- NOTE | 2020-06-11 22:19 | NUR ---
PT MEDICATED W/TYLENOL FOR HEADACHE. PT OFFERED WARMPACKS FOR HER BACK/REFUSED. PT EATING SNACK AT THIS TIME.
[2020-06-11 23:53] VITALS: BP 134/88
--- NOTE | 2020-06-12 01:20 | NUR ---
SET BED ALARM OFF, PT ASSISTED TO BSC AND BACK TO BED.
[2020-06-12 03:24] VITALS: BP 131/85
--- NOTE | 2020-06-12 05:00 | NUR ---
PT SET BED ALARM OFF, ASSISTED PT TO BSC AND BACK TO BED. PT REPORTS FEELING LIKE SHE NEEDS TO HAVE A BM. PAD IN MESH PANTIES WERE WET WITH URINE. WARM PRUNE JUICE PROVIDED.
[2020-06-12 07:40] VITALS: BP 138/85
--- NOTE | 2020-06-12 07:40 | NUR ---
RECIEVED REPORT FROM ANGELA TURNER. PT RESTING IN LOW FOWLERS SPOTIION UPON ENTERING ROOM. INTRODUCED SELF TO PT AND DISCUSSED POC. ASSESSMENT AND VITALS COMPLETED AT THIS TIME. RESPIRATIONS ARE EVEN AND UNLABORED. LUNG SOUNDS ARE CLEAR. HEART RHYTHM IS NORMAL WITH TELE IN PLACE. BOWEL SOUNDS ARE ACTIVE IN ALL QUADRANTS, LAST REPORTED BM 06/10/20. PT REQUESTING SOMETHING TO ASSIST WITH BM. PRUNE JUICE GIVEN TO PT BY COURT MESSENGER. WRITTER EDUCATED PT THAT IT HAS ONLY BEEN 2 DAYS BUT IF NOT DISCHARGED TODAY, MD COULD BE NOTIFIED OF REQUEST. PT VERBALIZED UNDERSTANDING. RADIAL AND PEDAL PUSLES ARE STRONG WITH NORMAL CAPILLARY REFILL. NOTED IN PT MEDICAL HISTORY OF POSSIBLE STROKE, VERY SLIGHT LEFT SIDED WEAKNESS NOTED. #22 IN LFA RUNNING WITH NS @75 PER ORDER, SITE APPEARS HEALTHY AND PATENT. PT DENIES ANY PAIN OR DISCOMFORTS AT THIS TIME. exurbe cosmeticsITTER ASSISTED WITH PT TO SITTING ON SIDE OF BED FOR BREAKFAST. PT COMPLAINED OF SLIGHT DIZZIENESS, WRITTER STAYED WITH PT UNTIL PT DENIED ANY MORE DIZZINESS. ALL SAFETY PRECAUTIONS IN PLACE WITH CALL LIGHT IN REACH AND BED ALARM ACTIVATED. WILL CONTINUE TO MONITOR.
[2020-06-12 10:30] VITALS: BP 132/90
--- NOTE | 2020-06-12 11:30 | NUR ---
NOTED REDNESS TO VAGINAL AND BUTTOCK REGION. PT INFORMS WRITTER THAT SHE WEARS A PAD DUE TO SOME INCONTINENCE.WRITTER SUGGESTED APPLYING BARRIER CREAM AND REMOVING PAD FROM AREA FOR A WHILE TO ASSIST WITH REDDENING. PT AGREED. WRITTER INFORMED PT TO CALL FOR ASSISTANCE WHEN NEEDING TO GO TO THE BATHROOM. PT VERBALIZED UNDERSTANDING. ALL SAFETY PRECAUTIONS RE-ENFORCED WITH BED ALARM ACTIVATED AND CALL LIGHT IN REACH. WILL CONTINUE TO MONITOR
--- NOTE | 2020-06-12 13:01 | NUR ---
SPOKE WITH BALJIT MUÑOZ FROM [facility] REGAURDING PT OBS STATUS
--- NOTE | 2020-06-12 15:34 | NUR ---
PT RESTING IN SEMI FOWLES POSITION ON CELL PHONE. RESPIRATIONS ARE EVEN AND UNLABORED WITH NO SIGNS OF DISTRESS NOTED. ASESSMENT REAMINS THE SAME. PT DENIES ANY PAIN OR DISCOMFORTS. ALL SAEFTY PRECAUTIONS ENFORCED WITH CALL LIGHT IN REACH WILL CONTINUE TO MONITOR.
[2020-06-12 15:37] VITALS: BP 135/83
--- NOTE | 2020-06-12 17:02 | NUR ---
WRITTER INFORMED THAT PT WET BED. PT STATES "ANYTIME I COUGH I PEE."VIKTOR CARE PERFORMED AND PURE WHICK PLACE TO ASSIST WITH INCONTIENCE AND REDNESS IN VAGINAL REGION. EDUCATED PT ON PURE WHICK. PT VERBALIZED UNDERSTANDING STATING "I HAVE HAD ONE BEFORE."
[2020-06-12 18:50] VITALS: BP 144/98
--- NOTE | 2020-06-12 19:24 | NUR ---
PT IN BED WATCHING TV, I ASSISTED PT FIND A CHANNEL ON THE TV. BED ALARM IS ON. PT DENIED ANY OTHER NEEDS. PUREWICK SET TO LOW CONTINUOUS SUCTION.
--- NOTE | 2020-06-12 21:30 | NUR ---
PT SITTING ON BSC, UNABLE TO HAVE BM, BUT FEELS LIKE SHE NEEDS TO. PT ASSISTED BACK TO BED PER REQUEST AND PUREWICK PLACED ON CONTINUOUS LOW SUCTION. WARM PRUNE JUICE PROVIDED.
--- NOTE | 2020-06-12 22:10 | NUR ---
PT CALLED ASKING FOR THREE TYLENOL. I PROVIDED TYLENOL ORDERED AND EXPLAINED TO THE PT THE MG DOSAGE PROIVDED AND THAT WE DO NOT GIVE THREE TYLENOL AND ATTEMPTED TO EDUCATE PT ON PROPER DOSING OF MEDICATION AT HOME, PT IS UNINTERESTED. ASSISTED PT TO REPOSITION IN THE BED. PT C/O DIFFICULTY HOLDING THINGS IN HER LEFT HAND. STATES SHE HAS HAD THIS TROUBLE FOR MONTHS NOW. WEB MARKETING MANAGER ARE EQUAL AT THIS TIME. NEURO'S INTACT. PT ANSWERING APPROPRIATELY, BUT IS NOT INTERESTED IN EDUCATION OR INSTRUCTION.
--- NOTE | 2020-06-12 22:16 | NUR ---
PT NOW CALLED WANTING HOB DOWN AND REPORTS NOT BEING ABLE TO FIND HER CELLPHONE. COMPUTER SCIENTIST IN WITH PT AT THIS TIME.
--- NOTE | 2020-06-12 23:25 | NUR ---
ASSISTED PT TO BSC TO SIT FOR AWHILE, PT NOW ASSISTED BACK INTO BED. VERY SMALL STOOL OUTPUT, STATES SHE "FEEL LIKE I NEED TO GO MORE, BUT CAN'T." SATURNINO AT BEDSIDE. PT IS STILL DRINKING HER PRUNE JUICE PROVIDED. CALL LIGHT W/IN REACH AND BED ALARM PLACED ON.
[2020-06-12 23:59] VITALS: BP 131/91
--- NOTE | 2020-06-13 02:10 | NUR ---
PT SITTING ON BSC ATTEMPTS TO HAVE STOOL OUTPUT. CONTINUING TO MONITOR PT. CALL LIGHT PLACED WITHIN REACH.
--- NOTE | 2020-06-13 02:32 | NUR ---
PT CLEANED OF LARGE GREEN STOOL AND ASSISTED AMBULATING TO RESTROOM TO WASH HANDS. PT IS VERY TALKATIVE, TALKING ABOUT HER CELLPHONE MISSING, WE REASSURED WE WOULD HAVE THE KITCHEN LOOK FOR IT AND DO EVERYTHING WE CAN TO FIND HER CELLPHONE. SHE GAVE ME HER CELLPHONE NUMBER TO CALL IT WITH FOR ASSISTANCE LOCATING IT. ASSISTED PT BACK INTO BED AND PUREWICK PLACED FOR PT REQUEST. PT IS VERY RED IN THE VIKTOR AREA, DISCUSSED WITH PT NOT USING PUREWICK.
[2020-06-13 03:35] VITALS: BP 137/96
--- NOTE | 2020-06-13 03:42 | NUR ---
PT CALLED TO USE BSC. 250CC OF CLEAR YELLOW URINE EMPTIED FROM BSC. PT ASSISTED BACK TO BED. VIKTOR CARE PROVIDED AND BARRIER CREAM PLACED. VIKTOR AREA IS VERY REDDENED. SATURNINO DOWELL'D AT THIS TIME DUE TO REDNESS AND IRRITATION. DISPOSIBLE PAD ON BED, PT IS ASKING FOR PANTIES WITH A VIKTOR-PAD FOR LEAKAGE, I DISCUSSED W/PT VIKTOR CARE AND HER NEED TO STAY DRY. SHE VERBALIZED UNDERSTANDING.
[2020-06-13 05:54] LABS: HEMATOCRIT 44.4 % (37.0-47.0); HEMOGLOBIN 13.9 g/dl (12.0-16.0); IMMATURE GRANULOCYTES 0.4 % (0.0-5.0); MEAN CELL VOLUME 102.1 fL CALC (80.0-100.0); MEAN CORPUSCULAR HGB CONC 31.3 g/dL CAL (32.0-36.0); NEUT# 5.89 thou/uL (2.00-7.15); RED BLOOD COUNT 4.35 mill/uL (4.20-5.60); RED CELL DISTRI WIDTH 14.8 % (11.5-15.5)
[2020-06-13 06:55] LABS: ANION GAP 11 (6-22 (CALC)); BUN 14 mg/dL (8-23); BUN/CREATININE RATIO 26 (12-20 (CALC)); CARBON DIOXIDE 26 mmol/l (22-30); CHLORIDE 103 mmol/l (95-108); CREATININE 0.5 mg/dL (0.5-1.0); GFR > 60 ML/MIN (>=60 (CALC)); GFR FOR AFR.AMER. > 60 ML/MIN (>=60 (CALC)); POTASSIUM 4.5 mmol/l (3.5-5.1); SODIUM 136 mmol/l (137-146)
[2020-06-13 07:15] VITALS: BP 134/99
--- NOTE | 2020-06-13 07:15 | NUR ---
PT RESTING IN BED, NO SIGNS OF DISTRESS NOTED, RESP EVEN AND UNLABORED. PT ASSISTED TO BSC, PT ALERT AND ORIENTED X3, NOTED AREA TO PERIAREA REDDENED, BARRIER CREAM APPLIED. AREA TO LLE REDDENED. ASSESSMENT COMPLETED CALL LIGHT IN REACH,CONTINUE TO MONITOR.
[2020-06-13 10:51] VITALS: BP 115/80
[2020-06-13] MEDS ORDERED: MECLIZINE25 MG PO (11:45)
[2020-06-13 15:40] VITALS: BP 133/82
--- NOTE | 2020-06-13 16:20 | NUR ---
PT ASSISTED TO BED FROM SHOWER, DISCUSSED DISCHARGE INSTRUCTIONS, IV REMOVED CATHETER INTACT. SPOKE WITH PT DAUGHTER VIA TELEPHONE, SHE WILL ARRIVE AT 1730 TO ADVERTISING ASSISTANT MANAGER HER MOTHER. PT DRESSED AND SAT IN CHAIR AT BEDSIDE. PT WANTS TO EAT DINNER BEFORE LEAVING. CALL LIGHT IN REACH,CONTINUE TO MONITOR.
--- NOTE | 2020-06-13 17:09 | NUR ---
DINNER TRAY PROVIDED
--- NOTE | 2020-06-13 17:35 | NUR ---
Discharge instructions given. Patient verbalizes understanding of same. Discharged in stable condition via Wheelchair to Home with family. All belongings sent with pt.
== END 2020-06-13 17:35 | disposition home health service (06) ==
LOC: ED 00:49 → ED-I 09:00 → ED 09:42 → MS2 09:43 → ED 09:52 → ED-I 09:52 → MS2 06-13 17:35
PROVIDERS: Family Medicine; Internal Medicine; ADMIT Internal Medicine; ATTEND Internal Medicine
DX: R42 Dizziness and giddiness (principal); N30.91 Cystitis, unspecified with hematuria; E87.2 Acidosis; E11.9 Type 2 diabetes mellitus without complications; I10 Essential (primary) hypertension; I67.82 Cerebral ischemia; R26.81 Unsteadiness on feet; I48.20 Chronic atrial fibrillation, unspecified; S61.412A Laceration without foreign body of left hand, initial encounter; X58.XXXA Exposure to other specified factors, initial encounter; Z79.84 Long term (current) use of oral hypoglycemic drugs; Z11.59 Encounter for screening for other viral diseases
CPT/HCPCS: G0378; J1650; J3475

== ENCOUNTER 2020-12-09 21:03 | Emergency (ER) | payer MEDICARE ==
[~2020-12-09] VITALS: Ht 152.4 cm; Wt 65.0 kg
[~2020-12-09 21:03] MED LIST changes: +AMIODARONE HCL200 MG PO; +FERR SULFATE325 MG PO; +LOPRESSOR25 M1 PO; +MECLIZINE25 MG PO; +METFORMIN HCL500 M1 PO
[2020-12-10 08:06] VITALS: BP 114/72
== END 2020-12-10 08:05 | disposition home or self-care (01) ==
LOC: ED 21:03
PROC: 0HQLXZZ Repair Left Lower Leg Skin, External Approach (ICD-10-PCS; principal; 2020-12-09)
DX: S81.812A Laceration without foreign body, left lower leg, initial encounter (principal); E11.9 Type 2 diabetes mellitus without complications; I48.91 Unspecified atrial fibrillation; I11.0 Hypertensive heart disease with heart failure; I50.9 Heart failure, unspecified; W01.198A Fall on same level from slipping, tripping and stumbling with subsequent striking against other object, initial encounter; Y92.009 Unspecified place in unspecified non-institutional (private) residence as the place of occurrence of the external cause; Z79.84 Long term (current) use of oral hypoglycemic drugs; Z87.11 Personal history of peptic ulcer disease

== ENCOUNTER 2020-12-22 14:19 | Observation (INO) | payer MEDICARE ==
[~2020-12-22] VITALS: Ht 152.4 cm; Wt 62.0 kg
[2020-12-22 14:40] VITALS: BP 119/72
[2020-12-22] MEDS ORDERED: ASPIRIN 81 LOW81 MG PO (15:39)
[2020-12-22] MEDS ORDERED: XARELTO10 MG PO (15:39)
[2020-12-22] MEDS ORDERED: TRAMADOL HYDROC50 MG PO (15:41)
[2020-12-22] MEDS ORDERED: BUMEX1 M1 PO (15:42)
[2020-12-22] MEDS ORDERED: DIGOX125 MCG PO (15:43)
[2020-12-22] MEDS ORDERED: SPIRONOLACT25 MG PO (15:44)
[2020-12-22] MEDS ORDERED: MULTI VIT PO (15:57)
[2020-12-22] MEDS ORDERED: LOVASTATIN10 M1 PO (15:57)
[2020-12-22] MEDS ORDERED: GNP MELATONIN MA5 MG PO (15:57)
[2020-12-22] MEDS ORDERED: D 10001000 UNIT PO (16:00)
[2020-12-22] MEDS ORDERED: OMEGA-3 FISH1000 MG PO (16:01)
[2020-12-22] MEDS ORDERED: ANTI-DIARRHE2 M1 PO (16:01)
[2020-12-22] MEDS ORDERED: COLESTIPOL1 GM PO (16:02)
[2020-12-22] MEDS ORDERED: TRAMADOL HCL50 MG PO (16:02)
[2020-12-22] MEDS ORDERED: PROAIR HFA108 MCG/AC IN (16:02)
[2020-12-22] MEDS ORDERED: MONTELUKAST SOD10 MG PO (16:03)
[2020-12-22] MEDS ORDERED: OMEPRAZOLE DR20 MG PO (16:03)
[2020-12-22] MEDS ORDERED: CLOPIDOGREL75 MG PO (16:04)
[2020-12-22 17:45] LABS: HEMATOCRIT 36.1 % (37.0-47.0); HEMOGLOBIN 11.7 g/dl (12.0-16.0); MEAN CELL VOLUME 97.8 fL CALC (80.0-100.0); MEAN CORPUSCULAR HGB 31.7 pG CALC (26.0-32.0); MEAN CORPUSCULAR HGB CONC 32.4 g/dL CAL (32.0-36.0); RED BLOOD COUNT 3.69 mill/uL (4.20-5.60); RED CELL DISTRI WIDTH 15.2 % (11.5-15.5)
[2020-12-22 18:05] LABS: ALBUMIN 3.6 g/dL (3.2-5.0); ALKALINE PHOSPHATASE 115 u/l (38-126); ANION GAP 11 (6-22 (CALC)); BILIRUBIN, TOTAL 0.5 mg/dL (0.0-1.4); BUN 14 mg/dL (8-23); BUN/CREATININE RATIO 24 (12-20 (CALC)); CARBON DIOXIDE 26 mmol/l (22-30); CHLORIDE 108 mmol/l (95-108); CREATININE 0.6 mg/dL (0.5-1.0); GFR > 60 ML/MIN (>=60 (CALC)); GFR FOR AFR.AMER. > 60 ML/MIN (>=60 (CALC)); POTASSIUM 4.3 mmol/l (3.5-5.1); SGOT/AST 33 u/l (9-36); SODIUM 140 mmol/l (137-146); TOTAL PROTEIN 6.9 g/dL (6.3-8.2)
[2020-12-22 18:33] LABS: URINE BILIRUBIN - DIPSTICK NEGATIVE (NEGATIVE); URINE BLOOD DIPSTICK NEGATIVE (NEGATIVE); URINE CLARITY CLEAR; URINE COLOR YELLOW; URINE GLUCOSE - DIPSTICK NEGATIVE (NEGATIVE); URINE KETONE NEGATIVE (NEGATIVE); URINE LEUK ESTERASE TRACE (Negative); URINE NITRITE - DIPSTICK NEGATIVE (Negative); URINE PH 5.5 (4.5-8.0); URINE PROTEIN - DIPSTICK NEGATIVE (NEG-TRACE); URINE UROBILINOGEN - DIPSTICK 0.2 E.U./dL (0.2)
[2020-12-22 19:00] VITALS: BP 106/65
[2020-12-23] VITALS: BP 124/72
[2020-12-23 04:00] VITALS: BP 147/89
[2020-12-23 04:49] LABS: HEMATOCRIT 33.7 % (37.0-47.0); MEAN CELL VOLUME 96.6 fL CALC (80.0-100.0); MEAN CORPUSCULAR HGB 31.5 pG CALC (26.0-32.0); MEAN CORPUSCULAR HGB CONC 32.6 g/dL CAL (32.0-36.0); RED BLOOD COUNT 3.49 mill/uL (4.20-5.60); RED CELL DISTRI WIDTH 14.7 % (11.5-15.5)
[2020-12-23 05:10] LABS: ANION GAP 8 (6-22 (CALC)); BUN 11 mg/dL (8-23); BUN/CREATININE RATIO 20 (12-20 (CALC)); CARBON DIOXIDE 26 mmol/l (22-30); CHLORIDE 108 mmol/l (95-108); CREATININE 0.5 mg/dL (0.5-1.0); GFR > 60 ML/MIN (>=60 (CALC)); GFR FOR AFR.AMER. > 60 ML/MIN (>=60 (CALC)); POTASSIUM 4.1 mmol/l (3.5-5.1); SODIUM 138 mmol/l (137-146)
[2020-12-23 05:14] LABS: MAGNESIUM 1.5 mg/dL (1.6-2.3)
[2020-12-23 07:11] VITALS: BP 129/64
[2020-12-23 11:30] VITALS: BP 120/85
[2020-12-23 16:00] VITALS: BP 116/75
[2020-12-23 19:00] VITALS: BP 110/68
[2020-12-24] VITALS (7 sets, daily range): BP systolic 96–136; BP diastolic 62–78
[2020-12-24 05:09] LABS: HEMATOCRIT 32.9 % (37.0-47.0); HEMOGLOBIN 10.8 g/dl (12.0-16.0); MEAN CELL VOLUME 97.1 fL CALC (80.0-100.0); MEAN CORPUSCULAR HGB 31.9 pG CALC (26.0-32.0); MEAN CORPUSCULAR HGB CONC 32.8 g/dL CAL (32.0-36.0); RED BLOOD COUNT 3.39 mill/uL (4.20-5.60)
[2020-12-24 05:33] LABS: ANION GAP 8 (6-22 (CALC)); BUN 12 mg/dL (8-23); BUN/CREATININE RATIO 19 (12-20 (CALC)); CARBON DIOXIDE 30 mmol/l (22-30); CHLORIDE 104 mmol/l (95-108); CREATININE 0.6 mg/dL (0.5-1.0); GFR > 60 ML/MIN (>=60 (CALC)); GFR FOR AFR.AMER. > 60 ML/MIN (>=60 (CALC)); MAGNESIUM 1.6 mg/dL (1.6-2.3); POTASSIUM 4.2 mmol/l (3.5-5.1); SODIUM 138 mmol/l (137-146)
[2020-12-25 04:00] VITALS: BP 122/80
[2020-12-25 05:26] LABS: HEMATOCRIT 35.5 % (37.0-47.0); HEMOGLOBIN 11.4 g/dl (12.0-16.0); MEAN CELL VOLUME 98.3 fL CALC (80.0-100.0); MEAN CORPUSCULAR HGB 31.6 pG CALC (26.0-32.0); MEAN CORPUSCULAR HGB CONC 32.1 g/dL CAL (32.0-36.0); RED BLOOD COUNT 3.61 mill/uL (4.20-5.60); RED CELL DISTRI WIDTH 14.9 % (11.5-15.5)
[2020-12-25 06:00] LABS: ANION GAP 11 (6-22 (CALC)); BUN 13 mg/dL (8-23); BUN/CREATININE RATIO 24 (12-20 (CALC)); CARBON DIOXIDE 34 mmol/l (22-30); CHLORIDE 96 mmol/l (95-108); CREATININE 0.6 mg/dL (0.5-1.0); GFR > 60 ML/MIN (>=60 (CALC)); GFR FOR AFR.AMER. > 60 ML/MIN (>=60 (CALC)); MAGNESIUM 1.9 mg/dL (1.6-2.3); POTASSIUM 4.6 mmol/l (3.5-5.1); SODIUM 136 mmol/l (137-146)
[2020-12-25 08:00] VITALS: BP 112/62
[2020-12-25 11:30] VITALS: BP 121/79
[2020-12-25 16:30] VITALS: BP 119/64
[2020-12-25 19:50] VITALS: BP 97/64
[2020-12-26] VITALS: BP 122/85; BP 138/66
[2020-12-26 04:00] VITALS: BP 106/68
[2020-12-26 06:10] LABS: HEMATOCRIT 37.7 % (37.0-47.0); HEMOGLOBIN 12.1 g/dl (12.0-16.0); IMMATURE GRANULOCYTES 0.5 % (0.0-5.0); MEAN CELL VOLUME 98.4 fL CALC (80.0-100.0); MEAN CORPUSCULAR HGB 31.6 pG CALC (26.0-32.0); MEAN CORPUSCULAR HGB CONC 32.1 g/dL CAL (32.0-36.0); NEUT# 5.92 thou/uL (2.00-7.15); RED BLOOD COUNT 3.83 mill/uL (4.20-5.60); RED CELL DISTRI WIDTH 14.7 % (11.5-15.5)
[2020-12-26 06:34] LABS: ALBUMIN 3.5 g/dL (3.2-5.0); ALKALINE PHOSPHATASE 98 u/l (38-126); ANION GAP 14 (6-22 (CALC)); BILIRUBIN, TOTAL 0.6 mg/dL (0.0-1.4); BUN 23 mg/dL (8-23); BUN/CREATININE RATIO 30 (12-20 (CALC)); CARBON DIOXIDE 31 mmol/l (22-30); CHLORIDE 94 mmol/l (95-108); CREATININE 0.8 mg/dL (0.5-1.0); GFR > 60 ML/MIN (>=60 (CALC)); GFR FOR AFR.AMER. > 60 ML/MIN (>=60 (CALC)); SGOT/AST 41 u/l (9-36); SODIUM 133 mmol/l (137-146); TOTAL PROTEIN 6.6 g/dL (6.3-8.2)
[2020-12-26 06:35] LABS: POTASSIUM 5.5 mmol/l (3.5-5.1)
[2020-12-26 07:30] VITALS: BP 110/82
[2020-12-26 11:33] VITALS: BP 100/65
[2020-12-26 16:13] VITALS: BP 116/74
[2020-12-26 19:00] VITALS: BP 106/63
[2020-12-27] VITALS: BP 107/72
[2020-12-27 04:00] VITALS: BP 103/69
[2020-12-27 05:23] LABS: HEMATOCRIT 35.5 % (37.0-47.0); HEMOGLOBIN 11.5 g/dl (12.0-16.0); IMMATURE GRANULOCYTES 0.4 % (0.0-5.0); MEAN CELL VOLUME 98.3 fL CALC (80.0-100.0); MEAN CORPUSCULAR HGB 31.9 pG CALC (26.0-32.0); MEAN CORPUSCULAR HGB CONC 32.4 g/dL CAL (32.0-36.0); NEUT# 5.95 thou/uL (2.00-7.15); RED BLOOD COUNT 3.61 mill/uL (4.20-5.60); RED CELL DISTRI WIDTH 14.6 % (11.5-15.5)
[2020-12-27 06:01] LABS: ALBUMIN 3.1 g/dL (3.2-5.0); ALKALINE PHOSPHATASE 97 u/l (38-126); ANION GAP 9 (6-22 (CALC)); BILIRUBIN, TOTAL 0.4 mg/dL (0.0-1.4); BUN 29 mg/dL (8-23); BUN/CREATININE RATIO 38 (12-20 (CALC)); CARBON DIOXIDE 36 mmol/l (22-30); CHLORIDE 92 mmol/l (95-108); CREATININE 0.8 mg/dL (0.5-1.0); GFR > 60 ML/MIN (>=60 (CALC)); GFR FOR AFR.AMER. > 60 ML/MIN (>=60 (CALC)); SGOT/AST 29 u/l (9-36); SODIUM 132 mmol/l (137-146); TOTAL PROTEIN 5.9 g/dL (6.3-8.2)
[2020-12-27 06:02] LABS: DIGOXIN 0.7 ng/mL (0.8-2.0)
[2020-12-27 07:05] VITALS: BP 110/67
[2020-12-27 09:14] VITALS: BP 110/67
[2020-12-27] MEDS ORDERED: OMNICEF300 MG PO (10:19)
== END 2020-12-27 14:48 ==
LOC: MS2 14:19
PROVIDERS: Nurse Practitioner; Physician Assistant; ADMIT Internal Medicine; ATTEND Internal Medicine
PROC: 0JBP0ZZ Excision of Left Lower Leg Subcutaneous Tissue and Fascia, Open Approach (ICD-10-PCS; principal; 2020-12-23)
DX: L03.116 Cellulitis of left lower limb (principal); S81.812A Laceration without foreign body, left lower leg, initial encounter; I10 Essential (primary) hypertension; E11.9 Type 2 diabetes mellitus without complications; I48.91 Unspecified atrial fibrillation; E87.5 Hyperkalemia; E87.2 Acidosis; B96.20 Unspecified Escherichia coli [E. coli] as the cause of diseases classified elsewhere; W01.198A Fall on same level from slipping, tripping and stumbling with subsequent striking against other object, initial encounter; Y92.009 Unspecified place in unspecified non-institutional (private) residence as the place of occurrence of the external cause; Z79.84 Long term (current) use of oral hypoglycemic drugs; Z87.11 Personal history of peptic ulcer disease; Z79.01 Long term (current) use of anticoagulants; Z20.822 Contact with and (suspected) exposure to COVID-19
CPT/HCPCS: J3475

== ENCOUNTER 2021-11-14 03:13 | Emergency (ER) | payer MEDICARE ==
[~2021-11-14] VITALS: Ht 152.4 cm; Wt 56.0 kg
[~2021-11-14 03:13] MED LIST changes: +ASPIRIN 81 LOW81 MG PO; +BUMEX1 M1 PO; +CLOPIDOGREL75 MG PO; +COLESTIPOL1 GM PO; +D 10001000 UNIT PO; +DIGOX125 MCG PO; +DOXYCYCLINE100 MG PO; +GNP MELATONIN MA5 MG PO; +MONTELUKAST SOD10 MG PO; +MULTI VIT PO; +OMEGA-3 FISH1000 MG PO; +OMEPRAZOLE DR20 MG PO; +OMNICEF300 MG PO; +PROAIR HFA108 MCG/AC IN; +SPIRONOLACT25 MG PO; +TRAMADOL HCL50 MG PO; +TRAMADOL HYDROC50 MG PO
[2021-11-14] MEDS ORDERED: MAGNESIUM64 MG PO (03:42)
[2021-11-14] MEDS ORDERED: ARTIFI TEARS OU (03:43)
[2021-11-14] MEDS ORDERED: PROTONIX40 M2 PO (03:44)
[2021-11-14] MEDS ORDERED: PROBIOTI2 PO (03:45)
[2021-11-14] MEDS ORDERED: RESTASIS0.05 % OU (03:46)
[2021-11-14] MEDS ORDERED: TRAZODONE50 MG PO (03:47)
[2021-11-14 03:56] LABS: HEMOGLOBIN 11.5 g/dl (12.0-16.0); IMMATURE GRANULOCYTES 0.5 % (0.0-5.0); MEAN CELL VOLUME 94.1 fL CALC (80.0-100.0); MEAN CORPUSCULAR HGB 32.1 pG CALC (26.0-32.0); MEAN CORPUSCULAR HGB CONC 34.1 g/dL CAL (32.0-36.0); NEUT# 5.99 thou/uL (2.00-7.15); RED BLOOD COUNT 3.58 mill/uL (4.20-5.60); RED CELL DISTRI WIDTH 16.3 % (11.5-15.5)
[2021-11-14 04:03] LABS: HEMATOCRIT 33.7 % (37.0-47.0)
[2021-11-14 04:11] LABS: ALBUMIN 3.7 g/dL (3.2-5.0); ALKALINE PHOSPHATASE 117 u/l (38-126); AMYLASE 92 u/l (30-110); BILIRUBIN, TOTAL 0.7 mg/dL (0.0-1.4); BUN 32 mg/dL (8-23); BUN/CREATININE RATIO 44 (12-20 (CALC)); CHLORIDE 105 mmol/l (95-108); CREATININE 0.7 mg/dL (0.5-1.0); GFR > 60 ML/MIN (>=60 (CALC)); GFR FOR AFR.AMER. > 60 ML/MIN (>=60 (CALC)); LIPASE 152 u/l (23-300); SGOT/AST 27 u/l (9-36); SODIUM 138 mmol/l (137-146); TOTAL PROTEIN 7.4 g/dL (6.3-8.2)
[2021-11-14 04:19] LABS: ACT PARTIAL THROMBO TIME 24.8 SECONDS (20.0-32.5); PROTHROMBIN TIME 10.8 SECONDS (9.0-12.5)
[2021-11-14 04:20] LABS: ANION GAP 12 (6-22 (CALC)); CARBON DIOXIDE 25 mmol/l (22-30); POTASSIUM 4.1 mmol/l (3.5-5.1)
[2021-11-14 04:22] LABS: MYOGLOBIN 25 ng/mL (0 - 62)
[2021-11-14 04:23] LABS: D-DIMER 5.66 mg/L (0.19-0.60)
[2021-11-14 05:01] LABS: URINE BILIRUBIN - DIPSTICK NEGATIVE (NEGATIVE); URINE BLOOD DIPSTICK NEGATIVE (NEGATIVE); URINE COLOR YELLOW; URINE GLUCOSE - DIPSTICK NEGATIVE (NEGATIVE); URINE KETONE NEGATIVE (NEGATIVE); URINE LEUK ESTERASE TRACE (NEGATIVE); URINE NITRITE - DIPSTICK NEGATIVE (Negative); URINE PH 5.5 (4.5-8.0); URINE PROTEIN - DIPSTICK NEGATIVE (NEG-TRACE); URINE UROBILINOGEN - DIPSTICK 0.2 E.U./dL (0.2)
[2021-11-14 13:10] VITALS: BP 128/64
== END 2021-11-14 13:10 ==
LOC: ED 03:13
PROVIDERS: Family Medicine
PROC: 02HV33Z Insertion of Infusion Device into Superior Vena Cava, Percutaneous Approach (ICD-10-PCS; principal; 2021-11-14)
DX: R07.9 Chest pain, unspecified (principal); I11.0 Hypertensive heart disease with heart failure; I50.9 Heart failure, unspecified; I49.5 Sick sinus syndrome; E11.9 Type 2 diabetes mellitus without complications; I48.91 Unspecified atrial fibrillation; Z95.0 Presence of cardiac pacemaker; Z20.822 Contact with and (suspected) exposure to COVID-19
CPT/HCPCS: J1644; Q9967

== ENCOUNTER 2022-05-14 03:46 | Inpatient (IN) | payer MEDICARE ==
[2022-05-14] VITALS (16 sets, daily range): BP systolic 91–143; BP diastolic 55–83
[~2022-05-14] VITALS: Ht 152.4 cm; Wt 56.0 kg
[~2022-05-14 03:46] MED LIST changes: +ARTIFI TEARS OU; +MAGNESIUM64 MG PO; +PROBIOTI2 PO; +PROTONIX20 M1 PO; +RESTASIS0.05 % OU; +TRAZODONE50 MG PO
--- NOTE | 2022-05-14 03:53 | NUR ---
PT TO ROOM VIA EMS
[2022-05-14 04:14] LABS: HEMATOCRIT 35.4 % (37.0-47.0); HEMOGLOBIN 11.7 g/dl (12.0-16.0); IMMATURE GRANULOCYTES 0.5 % (0.0-5.0); MEAN CELL VOLUME 98.3 fL CALC (80.0-100.0); MEAN CORPUSCULAR HGB 32.5 pG CALC (26.0-32.0); MEAN CORPUSCULAR HGB CONC 33.1 g/dL CAL (32.0-36.0); NEUT# 10.76 thou/uL (2.00-7.15); RED BLOOD COUNT 3.6 mill/uL (4.20-5.60); RED CELL DISTRI WIDTH 15.8 % (11.5-15.5)
--- NOTE | 2022-05-14 04:18 | NUR ---
PT ARRIVED VIA EMS FROM HOME AFTER MED ALERT WENT OFF AND NEIGHBOR CALLED EMS. PT STATED HAS BEEN FEELING WEAK FOR ABOUT 3 MOS. PT IS ALERT AND ORIENTED X 3, PT DOES NOT HAVE CURRENT MED LIST WITH HER. LABS AND SWABS TAKEN AND SENT. AWAITING RADIOLOGY. WILL CONTINUE TO MONITOR.
[2022-05-14 04:26] LABS: ALBUMIN 3.6 g/dL (3.2-5.0); ALKALINE PHOSPHATASE 121 u/l (38-126); ANION GAP 9 (6-22 (CALC)); BILIRUBIN, TOTAL 0.7 mg/dL (0.0-1.4); BUN 21 mg/dL (8-23); BUN/CREATININE RATIO 35 (12-20 (CALC)); CARBON DIOXIDE 23 mmol/l (22-30); CHLORIDE 106 mmol/l (95-108); CPK 746 u/l (30-165); CREATININE 0.6 mg/dL (0.5-1.0); GFR FOR AFR.AMER. > 60 ML/MIN (>=60 (CALC)); GFR OTHER RACES > 60 ML/MIN (>=60 (CALC)); MAGNESIUM 1.9 mg/dL (1.6-2.3); POTASSIUM 4.3 mmol/l (3.5-5.1); SGOT/AST 41 u/l (9-36); SODIUM 134 mmol/l (137-146); TOTAL PROTEIN 6.7 g/dL (6.3-8.2)
[2022-05-14 04:39] LABS: MYOGLOBIN 1933 ng/mL (0 - 62)
[2022-05-14 04:56] LABS: TSH, 3RD GENERATION 1.17 uIU/mL (0.47 - 4.68)
--- NOTE | 2022-05-14 06:03 | NUR ---
Reassessment of patient completed. No distress noted. WILL CONTINUE TO MONITOR.
--- NOTE | 2022-05-14 06:46 | NUR ---
GAVE NEW MEDS TO PT, PT HAD SOME STINGING AT IV SITE BUT SITE STILL FLUSHING WELL. STRAIGHT CATHED PT FOR URINE SAMPLE DUE TO INABILITY TO GET UP BECAUSE OF UNSTEADY GAIT. PT TOLERATED WELL.
[2022-05-14 07:05] LABS: URINE BILIRUBIN - DIPSTICK NEGATIVE (NEGATIVE); URINE BLOOD DIPSTICK SMALL (NEGATIVE); URINE COLOR YELLOW; URINE GLUCOSE - DIPSTICK NEGATIVE (NEGATIVE); URINE KETONE TRACE mg/dL (NEGATIVE); URINE PROTEIN - DIPSTICK TRACE mg/dL (NEG-TRACE); URINE SPECIFIC GRAVITY 1.015; URINE UROBILINOGEN - DIPSTICK 0.2 E.U./dL (0.2)
[2022-05-14 07:06] LABS: URINE LEUK ESTERASE SMALL (NEGATIVE); URINE NITRITE - DIPSTICK POSITIVE (Negative)
[2022-05-14 07:13] LABS: URINE BACTERIA FEW hpf; URINE SQUAMOUS EPITHELIAL CELL FEW EPI/hpf (0-FEW)
[2022-05-14] MEDS ORDERED: MIRTAZAPINE15 MG PO (07:15)
--- NOTE | 2022-05-14 08:50 | NUR ---
PT ARRIVED TO MS.ACCOMPANIED BY STAFF REPORT RECIEVED FROM LEONARDO MILLER. PT A/OX3 WITH FORGETFULLNESS. ASSESSMENT AND VS COMPLETED. HEART RHYTHM PACER WITH NO TELE IN PLACE IRREGULAR. RESPIRATIONS UNLABORED. BOWEL SOUNDS ACTIVE. PT IV SITE NOTED TO INDEX FINGER, SKIN TEAT UNVISIBLE DRESSING TO BECHANGED. PT STATED DRESSING TO LEFT LEG. PER HOME HEALTH WITH [facility]. PT DENIES PAIN AT THET MOMENT,ALLSAFETY PRECAUTIONS IN PLACE WITH CALL LIGHT IN REACH.
--- NOTE | 2022-05-14 13:12 | NUR ---
PT RESTING IN HIGH FOWLERS POSITION. PT DENIES ADDITONAL NEEDS NO DISTRESS NOTED.
--- NOTE | 2022-05-14 16:27 | NUR ---
PT ON BSC . PT STATED WILL CALL WHEN DONE.
--- NOTE | 2022-05-14 20:30 | NUR ---
PT RESTING IN BED WATCHING TV, NO SIGNS OF DISTRESS NOTED, RESP EVEN AND UNLABORED. PT ALERT AND ORIENTED X4, DISCUSSED POC, UPON ASSESSMENT NOTED REDNESS TO BUTTOCK AND PERIAREA, SEE CHART FOR PHOTOS, BARRIER CREAM APPLIED. DISCUSSED MEDICATIONS PT DECLINED LOVENOX. ASSESSMENT COMPLETED, CALL LIGHT IN REACH, BED ALARM FOR SAFETY, CONTINUE TO MONITOR.
[2022-05-15] VITALS (7 sets, daily range): BP systolic 117–149; BP diastolic 63–82
--- NOTE | 2022-05-15 | NUR ---
PT RESTING IN BED WITH EYES CLOSED, NO SIGNS OF DISTRESS NOTED, RESP EVEN AND UNLABORED. CALL LIGHT IN REACH,CONTINUE TO MONITOR.
--- NOTE | 2022-05-15 04:45 | NUR ---
PT RESTING IN BED, NO SIGNS OF DISTRESS NOTED, RESP EVEN AND UNLABORED. WINDOW/DISTRIBUTION CLERK AT BEDSIDE OBTAINING VITALS PT 02 SATURATIONS 83, PATIENT PLACED ON NC 2L SPO2 INCREASED TO 94%. PT STATES SHE DOES NOT USE 02 AT HOME OR CPAP. PT DENIES ANY NEEDS OR COMPLAINTS AT THIS TIME. CALL LIGHT IN REACH,CONTINUE TO MONITOR.
[2022-05-15 05:51] LABS: HEMATOCRIT 33.6 % (37.0-47.0); HEMOGLOBIN 11.1 g/dl (12.0-16.0); MEAN CELL VOLUME 98.8 fL CALC (80.0-100.0); MEAN CORPUSCULAR HGB 32.6 pG CALC (26.0-32.0); RED BLOOD COUNT 3.4 mill/uL (4.20-5.60); RED CELL DISTRI WIDTH 15.9 % (11.5-15.5)
[2022-05-15 06:14] LABS: ANION GAP 6 (6-22 (CALC)); BUN 17 mg/dL (8-23); BUN/CREATININE RATIO 33 (12-20 (CALC)); CARBON DIOXIDE 27 mmol/l (22-30); CHLORIDE 107 mmol/l (95-108); CREATININE 0.5 mg/dL (0.5-1.0); GFR FOR AFR.AMER. > 60 ML/MIN (>=60 (CALC)); GFR OTHER RACES > 60 ML/MIN (>=60 (CALC)); MAGNESIUM 1.8 mg/dL (1.6-2.3); POTASSIUM 4.1 mmol/l (3.5-5.1); SODIUM 136 mmol/l (137-146)
--- NOTE | 2022-05-15 06:40 | NUR ---
RECEIVED REPORT FROM ROBBIE BLACKWOOD.
--- NOTE | 2022-05-15 08:20 | NUR ---
PT SITTING ON RECLINER: A&OX3. EVEN AND UNLABORED RESPIRATIONS: O2 @ 2L VIA NASAL CANNULA IN PLACE. TELEMETRY IN PLACE. IV SITE FLUSHED: #20 RIGHT INDEX FINGER, HEALTHY AND PATENT. ACTIVE BOWEL SOUNDS X4 QUADRANTS. SAFETY PRECAUTIONS IN PLACE WITH CALL LIGHT IN REACH.
--- NOTE | 2022-05-15 12:10 | NUR ---
PT SITTING ON RECLINER, HAVING LUNCH. NO DISTRESS OR PAIN NOTED. O2 TITRADED TO 1L VIA NASAL CANNULA PER COAL EQUIPMENT OPERATOR ORDER. NO NEEDS AT THE TIME. SAFETY PRECAUTIONS IN PLACE WITH CALL LIGHT IN REACH.
--- NOTE | 2022-05-15 14:03 | NUR ---
PT ASSISTED TO BSC, PT BACK IN BED. GIOVANNAS BUTT PASTE APPLIED TO BUTTOCKS. SAFETY PRECAUTIONS IN PLACE WITH CALL LIGHT IN REACH.
--- NOTE | 2022-05-15 16:00 | NUR ---
PT RESTING WITH EYES CLOSED. NO DISTRESS OR PAIN NOTED. IV HEALTHY AND PATENT INFUSING FLUIDS PER EMAR. TELEMETRY IN PLACE. SAFETY PRECAUTIONS IN PLACE WITH CALL LIGHT IN REACH.
--- NOTE | 2022-05-15 17:24 | NUR ---
PT TAKEN TO RADIOLOGY [facility]IA [place] [facility] AT THIS TIME BY [facility].
--- NOTE | 2022-05-15 17:33 | NUR ---
PT IS BACK FROM RADIOLOGY.
[2022-05-16 00:11] VITALS: BP 131/75
[2022-05-16 04:00] VITALS: BP 140/67
[2022-05-16 05:19] LABS: HEMATOCRIT 33.2 % (37.0-47.0); HEMOGLOBIN 10.8 g/dl (12.0-16.0); IMMATURE GRANULOCYTES 0.2 % (0.0-5.0); MEAN CELL VOLUME 100.3 fL CALC (80.0-100.0); MEAN CORPUSCULAR HGB 32.6 pG CALC (26.0-32.0); MEAN CORPUSCULAR HGB CONC 32.5 g/dL CAL (32.0-36.0); NEUT# 5.44 thou/uL (2.00-7.15); RED BLOOD COUNT 3.31 mill/uL (4.20-5.60)
--- NOTE | 2022-05-16 05:39 | NUR ---
PT A/O X3, NO OVERNIGHT EVENTS, PT O2 KEPT DROPPING IN THE 80'S SO I PUT HER ON 1L O2, NO DISTRESS NOTED, BED ALARM ON AND IN LOW POSITION, CALL LIGHT IN REACH
[2022-05-16 05:42] LABS: ALKALINE PHOSPHATASE 98 u/l (38-126); ANION GAP 6 (6-22 (CALC)); BUN 15 mg/dL (8-23); BUN/CREATININE RATIO 19 (12-20 (CALC)); CARBON DIOXIDE 30 mmol/l (22-30); CHLORIDE 107 mmol/l (95-108); CPK 596 u/l (30-165); CREATININE 0.8 mg/dL (0.5-1.0); GFR FOR AFR.AMER. > 60 ML/MIN (>=60 (CALC)); GFR OTHER RACES > 60 ML/MIN (>=60 (CALC)); MAGNESIUM 1.7 mg/dL (1.6-2.3); POTASSIUM 3.9 mmol/l (3.5-5.1); SGOT/AST 48 u/l (9-36); SODIUM 139 mmol/l (137-146)
[2022-05-16 05:43] LABS: ALBUMIN 2.6 g/dL (3.2-5.0); BILIRUBIN, TOTAL 0.3 mg/dL (0.0-1.4); TOTAL PROTEIN 5.1 g/dL (6.3-8.2)
--- NOTE | 2022-05-16 06:40 | NUR ---
RECEIVED REPORT FROM ANGELA PERALTA.
[2022-05-16 06:44] VITALS: BP 150/87
--- NOTE | 2022-05-16 08:02 | NUR ---
ER CALLED ABOUT SUSTAINED HEART RATE OF 110-115. NURSE NOTIFED. AM MEDICATION GIVEN PER MD ORDERS.
--- NOTE | 2022-05-16 08:30 | NUR ---
PT SITTING ON RECLINER HAVING BREAKFAST: A&O X3. EVEN AND UNLABORED RESPIRATIONS; CLEAR LUNG SOUNDS UPON AUSCULTATION. TELEMETRY IN PLACE. IV SITE HEALTHY AND PATENT. ACTIVE BOWEL SOUNDS X4 QUADRANTS. SAFETY PRECAUTIONS IN PLACE WITH CALL LIGHT IN REACH.
[2022-05-16 10:29] VITALS: BP 109/77
[2022-05-16] MEDS ORDERED: OMNICEF300 MG PO (11:35)
--- NOTE | 2022-05-16 12:10 | NUR ---
PT SITTING ON RECLINER HAVING LUNCH. NO DISTRESS OR PAIN NOTED. TELEMETRY AND SAFETY PRECAUTIONS IN PLACE. NO NEEDS AT THE TIME. CALL LIGHT IN REACH.
--- NOTE | 2022-05-16 15:45 | NUR ---
pt educated on dc instuctions: pt showed understanding. iv removed: # 24G right hand, catheter intact upon removal. telemetry removed, Er notified of same.
--- NOTE | 2022-05-16 16:08 | NUR ---
pt left @1608. Discharge instructions given. Patient verbalizes understanding of same. Discharged in stable condition via Wheelchair to Home with staff. All belongings sent with pt.
== END 2022-05-16 17:27 | disposition home health service (06) | DRG 558 ==
LOC: ED 03:46 → ED-I 06:45 → ED 06:56 → MS2 07:06
PROVIDERS: Family Medicine; Nurse Practitioner; ADMIT Internal Medicine; ATTEND Internal Medicine
DX: M62.82 Rhabdomyolysis (principal); N39.0 Urinary tract infection, site not specified; I11.0 Hypertensive heart disease with heart failure; I50.9 Heart failure, unspecified; I48.0 Paroxysmal atrial fibrillation; R09.02 Hypoxemia; E11.9 Type 2 diabetes mellitus without complications; B96.20 Unspecified Escherichia coli [E. coli] as the cause of diseases classified elsewhere; S30.810A Abrasion of lower back and pelvis, initial encounter; X58.XXXA Exposure to other specified factors, initial encounter; Z87.11 Personal history of peptic ulcer disease; Z95.818 Presence of other cardiac implants and grafts; Z95.0 Presence of cardiac pacemaker; Z20.822 Contact with and (suspected) exposure to COVID-19; Z90.3 Acquired absence of stomach [part of]; Z79.02 Long term (current) use of antithrombotics/antiplatelets
CPT/HCPCS: J1650; J3475

== ENCOUNTER 2022-10-18 08:59 | Inpatient (IN) | payer MEDICARE ==
[2022-10-18] VITALS (18 sets, daily range): BP systolic 99–177; BP diastolic 61–102
[~2022-10-18] VITALS: Ht 152.4 cm; Wt 54.8 kg
[~2022-10-18 08:59] MED LIST changes: +MIRTAZAPINE15 MG PO
[2022-10-18 09:22] LABS: BASO% 0.3 % (0-3); EOS% 1.9 % (0-8); HEMATOCRIT 38.9 % (37.0-47.0); HEMOGLOBIN 13.1 g/dl (12.0-16.0); IMMATURE GRANULOCYTES 0.2 % (0.0-5.0); LYMPH% 9.4 % (15-41); MEAN CELL VOLUME 99.7 fL CALC (80.0-100.0); MEAN CORPUSCULAR HGB 33.6 pG CALC (26.0-32.0); MEAN CORPUSCULAR HGB CONC 33.7 g/dL CAL (32.0-36.0); MONO% 19.5 % (2-13); NEUT# 4.3 thou/uL (2.00-7.15); NEUT% 68.7 % (42-76); RED BLOOD COUNT 3.9 mill/uL (4.20-5.60); RED CELL DISTRI WIDTH 14.7 % (11.5-15.5)
[2022-10-18 09:52] LABS: ALBUMIN 4.1 g/dL (3.2-5.0); ALKALINE PHOSPHATASE 134 u/l (38-126); ANION GAP 12 (6-22 (CALC)); BILIRUBIN, TOTAL 0.3 mg/dL (0.0-1.4); BUN 12 mg/dL (8-23); BUN/CREATININE RATIO 22 (12-20 (CALC)); CHLORIDE 104 mmol/l (95-108); CREATININE 0.5 mg/dL (0.5-1.0); GFR FOR AFR.AMER. > 60 ML/MIN (>=60 (CALC)); GFR OTHER RACES > 60 ML/MIN (>=60 (CALC)); LIPASE 44 u/l (23-300); POTASSIUM 4.3 mmol/l (3.5-5.1); SGOT/AST 45 u/l (9-36); SODIUM 139 mmol/l (137-146); TOTAL PROTEIN 7.3 g/dL (6.3-8.2)
[2022-10-18 09:55] LABS: CARBON DIOXIDE 27 mmol/l (22-30)
[2022-10-18 10:34] LABS: URINE BILIRUBIN - DIPSTICK NEGATIVE (NEGATIVE); URINE BLOOD DIPSTICK NEGATIVE (NEGATIVE); URINE COLOR YELLOW; URINE GLUCOSE - DIPSTICK NEGATIVE (NEGATIVE); URINE KETONE TRACE mg/dL (NEGATIVE); URINE LEUK ESTERASE NEGATIVE (NEGATIVE); URINE PROTEIN - DIPSTICK TRACE mg/dL (NEG-TRACE); URINE SPECIFIC GRAVITY 1.025; URINE UROBILINOGEN - DIPSTICK 0.2 E.U./dL (0.2)
[2022-10-18 10:37] LABS: URINE NITRITE - DIPSTICK NEGATIVE (Negative)
[2022-10-18] MEDS ORDERED: CHOLESTYRAMINE4 G1 PO (16:19)
[2022-10-18] MEDS ORDERED: DIGOXIN0.125 MG PO (16:19)
[2022-10-18] MEDS ORDERED: TRAZODONE50 MG PO (16:20)
[2022-10-18] MEDS ORDERED: ZITHROMAX Z-PA250 MG PO (16:35)
[2022-10-18] MEDS ORDERED: FERRETTS325 MG PO (16:36)
[2022-10-19] VITALS (8 sets, daily range): BP systolic 99–167; BP diastolic 59–90
[2022-10-19 06:01] LABS: BASO% 0.3 % (0-3); IMMATURE GRANULOCYTES 0.1 % (0.0-5.0); LYMPH% 16.9 % (15-41); MEAN CORPUSCULAR HGB 33.4 pG CALC (26.0-32.0); MEAN CORPUSCULAR HGB CONC 32.8 g/dL CAL (32.0-36.0); MONO% 17.6 % (2-13); NEUT# 4.8 thou/uL (2.00-7.15); NEUT% 65.1 % (42-76); RED BLOOD COUNT 4.52 mill/uL (4.20-5.60); RED CELL DISTRI WIDTH 14.5 % (11.5-15.5)
[2022-10-19 06:26] LABS: HEMOGLOBIN 15.1 g/dl (12.0-16.0)
[2022-10-19 06:27] LABS: HEMATOCRIT 46.1 % (37.0-47.0)
[2022-10-19 06:32] LABS: ALBUMIN 3.8 g/dL (3.2-5.0); ALKALINE PHOSPHATASE 126 u/l (38-126); ANION GAP 13 (6-22 (CALC)); BILIRUBIN, TOTAL 0.4 mg/dL (0.0-1.4); BUN 8 mg/dL (8-23); BUN/CREATININE RATIO 17 (12-20 (CALC)); CARBON DIOXIDE 25 mmol/l (22-30); CHLORIDE 99 mmol/l (95-108); CREATININE 0.5 mg/dL (0.5-1.0); GFR FOR AFR.AMER. > 60 ML/MIN (>=60 (CALC)); GFR OTHER RACES > 60 ML/MIN (>=60 (CALC)); POTASSIUM 4.2 mmol/l (3.5-5.1); SGOT/AST 53 u/l (9-36); SODIUM 133 mmol/l (137-146); TOTAL PROTEIN 7.2 g/dL (6.3-8.2)
[2022-10-20] VITALS (7 sets, daily range): BP systolic 94–141; BP diastolic 58–79
[2022-10-20 06:25] LABS: BASO% 0.2 % (0-3); HEMATOCRIT 40.3 % (37.0-47.0); HEMOGLOBIN 13.8 g/dl (12.0-16.0); IMMATURE GRANULOCYTES 0.2 % (0.0-5.0); LYMPH% 17.1 % (15-41); MEAN CELL VOLUME 98.8 fL CALC (80.0-100.0); MEAN CORPUSCULAR HGB 33.8 pG CALC (26.0-32.0); MEAN CORPUSCULAR HGB CONC 34.2 g/dL CAL (32.0-36.0); MONO% 21.6 % (2-13); NEUT# 2.81 thou/uL (2.00-7.15); NEUT% 60.9 % (42-76); RED BLOOD COUNT 4.08 mill/uL (4.20-5.60); RED CELL DISTRI WIDTH 14.4 % (11.5-15.5)
[2022-10-20 07:07] LABS: ALBUMIN 3.3 g/dL (3.2-5.0); ALKALINE PHOSPHATASE 106 u/l (38-126); BUN 17 mg/dL (8-23); BUN/CREATININE RATIO 30 (12-20 (CALC)); CHLORIDE 99 mmol/l (95-108); CREATININE 0.6 mg/dL (0.5-1.0); GFR FOR AFR.AMER. > 60 ML/MIN (>=60 (CALC)); GFR OTHER RACES > 60 ML/MIN (>=60 (CALC)); POTASSIUM 3.5 mmol/l (3.5-5.1); SGOT/AST 37 u/l (9-36); SODIUM 137 mmol/l (137-146); TOTAL PROTEIN 5.9 g/dL (6.3-8.2)
[2022-10-20 07:08] LABS: ANION GAP 7 (6-22 (CALC)); BILIRUBIN, TOTAL 0.2 mg/dL (0.0-1.4); CARBON DIOXIDE 35 mmol/l (22-30)
[2022-10-21 04:00] VITALS: BP 144/71
[2022-10-21 04:36] VITALS: BP 144/71
[2022-10-21 05:22] LABS: HEMATOCRIT 41.2 % (37.0-47.0); HEMOGLOBIN 13.8 g/dl (12.0-16.0); IMMATURE GRANULOCYTES 0.7 % (0.0-5.0); LYMPH% 23.3 % (15-41); MEAN CELL VOLUME 99.3 fL CALC (80.0-100.0); MEAN CORPUSCULAR HGB 33.3 pG CALC (26.0-32.0); MEAN CORPUSCULAR HGB CONC 33.5 g/dL CAL (32.0-36.0); NEUT# 3.32 thou/uL (2.00-7.15); RED BLOOD COUNT 4.15 mill/uL (4.20-5.60); RED CELL DISTRI WIDTH 14.3 % (11.5-15.5)
[2022-10-21 07:08] VITALS: BP 124/82
[2022-10-21 07:12] LABS: ALBUMIN 3.4 g/dL (3.2-5.0); ALKALINE PHOSPHATASE 112 u/l (38-126); ANION GAP 10 (6-22 (CALC)); BILIRUBIN, TOTAL 0.2 mg/dL (0.0-1.4); BUN 26 mg/dL (8-23); BUN/CREATININE RATIO 48 (12-20 (CALC)); CARBON DIOXIDE 36 mmol/l (22-30); CHLORIDE 94 mmol/l (95-108); CREATININE 0.5 mg/dL (0.5-1.0); GFR FOR AFR.AMER. > 60 ML/MIN (>=60 (CALC)); GFR OTHER RACES > 60 ML/MIN (>=60 (CALC)); POTASSIUM 3.7 mmol/l (3.5-5.1); SODIUM 136 mmol/l (137-146)
[2022-10-21 07:14] LABS: SGOT/AST 66 u/l (9-36)
[2022-10-21 07:32] LABS: C-REACTIVE PROTEIN 2.7 mg/dL (0-0.9)
[2022-10-21 10:00] VITALS: BP 136/78
[2022-10-21 14:51] VITALS: BP 113/68
[2022-10-21 18:55] VITALS: BP 90/55
[2022-10-22] VITALS (7 sets, daily range): BP systolic 90–138; BP diastolic 57–82
[2022-10-22 05:20] LABS: BASO% 0.2 % (0-3); HEMATOCRIT 41.6 % (37.0-47.0); HEMOGLOBIN 14.2 g/dl (12.0-16.0); IMMATURE GRANULOCYTES 0.2 % (0.0-5.0); LYMPH% 23.3 % (15-41); MEAN CORPUSCULAR HGB 33.8 pG CALC (26.0-32.0); MEAN CORPUSCULAR HGB CONC 34.1 g/dL CAL (32.0-36.0); MONO% 19.8 % (2-13); NEUT# 2.56 thou/uL (2.00-7.15); NEUT% 56.5 % (42-76); RED BLOOD COUNT 4.2 mill/uL (4.20-5.60); RED CELL DISTRI WIDTH 14.1 % (11.5-15.5)
[2022-10-22 05:39] LABS: ALBUMIN 3.4 g/dL (3.2-5.0); ALKALINE PHOSPHATASE 110 u/l (38-126); ANION GAP 10 (6-22 (CALC)); BUN 42 mg/dL (8-23); BUN/CREATININE RATIO 51 (12-20 (CALC)); CARBON DIOXIDE 32 mmol/l (22-30); CHLORIDE 101 mmol/l (95-108); CREATININE 0.8 mg/dL (0.5-1.0); GFR FOR AFR.AMER. > 60 ML/MIN (>=60 (CALC)); GFR OTHER RACES > 60 ML/MIN (>=60 (CALC)); POTASSIUM 3.5 mmol/l (3.5-5.1); SODIUM 139 mmol/l (137-146)
[2022-10-22 05:49] LABS: BILIRUBIN, TOTAL 0.1 mg/dL (0.0-1.4); SGOT/AST 272 u/l (9-36)
[2022-10-23 00:36] VITALS: BP 106/79
[2022-10-23 04:16] VITALS: BP 151/88
[2022-10-23 06:38] VITALS: BP 151/88
[2022-10-23 09:38] LABS: BASO% 0.2 % (0-3); HEMATOCRIT 42.3 % (37.0-47.0); HEMOGLOBIN 14.3 g/dl (12.0-16.0); IMMATURE GRANULOCYTES 0.2 % (0.0-5.0); LYMPH% 33.6 % (15-41); MEAN CELL VOLUME 98.6 fL CALC (80.0-100.0); MEAN CORPUSCULAR HGB 33.3 pG CALC (26.0-32.0); MEAN CORPUSCULAR HGB CONC 33.8 g/dL CAL (32.0-36.0); MONO% 12.5 % (2-13); NEUT# 3.03 thou/uL (2.00-7.15); NEUT% 53.5 % (42-76); RED BLOOD COUNT 4.29 mill/uL (4.20-5.60); RED CELL DISTRI WIDTH 14.2 % (11.5-15.5)
[2022-10-23 09:53] LABS: ALBUMIN 3.6 g/dL (3.2-5.0); ALKALINE PHOSPHATASE 118 u/l (38-126); ANION GAP 12 (6-22 (CALC)); BUN 35 mg/dL (8-23); BUN/CREATININE RATIO 59 (12-20 (CALC)); CARBON DIOXIDE 31 mmol/l (22-30); CHLORIDE 98 mmol/l (95-108); CREATININE 0.6 mg/dL (0.5-1.0); GFR FOR AFR.AMER. > 60 ML/MIN (>=60 (CALC)); GFR OTHER RACES > 60 ML/MIN (>=60 (CALC)); POTASSIUM 3.3 mmol/l (3.5-5.1); SODIUM 138 mmol/l (137-146); TOTAL PROTEIN 6.6 g/dL (6.3-8.2)
[2022-10-23 09:57] LABS: BILIRUBIN, TOTAL 0.2 mg/dL (0.0-1.4); SGOT/AST 545 u/l (9-36)
[2022-10-23 13:27] VITALS: BP 121/75
[2022-10-23 19:00] VITALS: BP 148/71
[2022-10-23 22:33] VITALS: BP 126/78
[2022-10-24 00:07] VITALS: BP 127/72
[2022-10-24 04:50] VITALS: BP 105/63
[2022-10-24 06:22] LABS: BASO% 0.1 % (0-3); HEMATOCRIT 43.8 % (37.0-47.0); HEMOGLOBIN 14.8 g/dl (12.0-16.0); IMMATURE GRANULOCYTES 0.4 % (0.0-5.0); LYMPH% 21.8 % (15-41); MEAN CELL VOLUME 99.3 fL CALC (80.0-100.0); MEAN CORPUSCULAR HGB 33.6 pG CALC (26.0-32.0); MEAN CORPUSCULAR HGB CONC 33.8 g/dL CAL (32.0-36.0); MONO% 15.5 % (2-13); NEUT# 4.69 thou/uL (2.00-7.15); NEUT% 62.2 % (42-76); RED BLOOD COUNT 4.41 mill/uL (4.20-5.60); RED CELL DISTRI WIDTH 14.3 % (11.5-15.5)
[2022-10-24 06:45] VITALS: BP 109/67
[2022-10-24 06:48] LABS: ALBUMIN 3.3 g/dL (3.2-5.0); ALKALINE PHOSPHATASE 110 u/l (38-126); ANION GAP 10 (6-22 (CALC)); BUN 35 mg/dL (8-23); BUN/CREATININE RATIO 46 (12-20 (CALC)); CARBON DIOXIDE 31 mmol/l (22-30); CHLORIDE 98 mmol/l (95-108); CREATININE 0.8 mg/dL (0.5-1.0); GFR FOR AFR.AMER. > 60 ML/MIN (>=60 (CALC)); GFR OTHER RACES > 60 ML/MIN (>=60 (CALC)); POTASSIUM 3.9 mmol/l (3.5-5.1); SGOT/AST 341 u/l (9-36); SODIUM 136 mmol/l (137-146); TOTAL PROTEIN 6.4 g/dL (6.3-8.2)
[2022-10-24 07:05] LABS: BILIRUBIN, TOTAL 0.3 mg/dL (0.0-1.4)
[2022-10-24 10:23] VITALS: BP 91/55
[2022-10-24 14:35] VITALS: BP 109/63
[2022-10-24] MEDS ORDERED: DEXAMETHASON6 MG PO (15:06)
[2022-10-24] MEDS ORDERED: VIBRAMYCIN100 M2 PO (15:06)
[2022-10-24] MEDS ORDERED: LASIX 20 MG TAB20 MG PO (15:09)
== END 2022-10-24 18:56 | DRG 177 ==
LOC: ED 08:59 → ED-I 12:10 → ED 12:59 → MS2 13:00
PROVIDERS: Family Medicine; Internal Medicine; Nurse Practitioner Family; ADMIT Internal Medicine; ATTEND Internal Medicine
DX: U07.1 COVID-19 (principal); J12.82 Pneumonia due to coronavirus disease 2019; J96.01 Acute respiratory failure with hypoxia; I11.0 Hypertensive heart disease with heart failure; I50.9 Heart failure, unspecified; E11.9 Type 2 diabetes mellitus without complications; I48.91 Unspecified atrial fibrillation; I49.5 Sick sinus syndrome; E78.5 Hyperlipidemia, unspecified; Z95.0 Presence of cardiac pacemaker; Z87.11 Personal history of peptic ulcer disease
CPT/HCPCS: J1650